=== PATIENT | female | born 1965 | race Caucasian/White ===

== ENCOUNTER 2017-01-19 15:50 | Inpatient (IN) | payer SELFPAY ==
[~2017-01-19] VITALS: Ht 185.4 cm; Wt 153.4 kg
[~2017-01-19 15:50] MED LIST: LORTA5 PO
[2017-01-19 15:57] VITALS: BP 175/91
[2017-01-19 16:37] VITALS: BP_SYST 146; BP_SYST 150; BP_SYST 173; BP_DIAS 68; BP_DIAS 69; BP_DIAS 84; RESP 15; RESP 23
--- NOTE | 2017-01-19 17:04 | RADRPT ---
EXAM DATE/TIME: 01/19/2017 16:14 [facility] COMPARISON: No previous studies available for comparison. INDICATIONS : Syncope. MEDICAL HISTORY : Deep venous thrombosis. SURGICAL HISTORY : None. ENCOUNTER: Initial ACUITY: 1 day PAIN SCORE: 0/10 LOCATION: Bilateral chest FINDINGS: Mild left base consolidation noted. Right lung reasonably clear. No perceptible effusion. No pneumoth orax. Heart size within normal limits. CONCLUSION: Mild left base atelectasis. Inder Medel MD on January 19, 2017 at 17:02 Board Certified Radiologist. This report was verified electronically.
[2017-01-19] MEDS ORDERED: HYPERTENSION (17:07)
[2017-01-19] MEDS ORDERED: ALLERGY MEDICATION (17:07)
[2017-01-19] MEDS ORDERED: ASPI-437 (17:07)
[2017-01-19] MEDS ORDERED: CHOLMIS5 (17:07)
[2017-01-19] MEDS ORDERED: SODIUM CHLOR 0.9% 1000 ML INJ 1,000 ML IV SCH (17:11)
[2017-01-19 17:18] LABS: AUTOMATED NEUTROPHIL # 7.1 TH/MM3 (1.8-7.7); BASOPHIL % 0.3 % (0.0-2.0); EOSINOPHIL # 0.2 TH/MM3 (0-0.4); EOSINOPHIL % 2.1 % (0.0-4.0); HEMATOCRIT 42.7 % (35.0-46.0); HEMO FLAGS DIFF FINAL; LYMPH % 17.7 % (9.0-44.0); LYMPHOCYTE # 1.7 TH/MM3 (1.0-4.8); NEUT % 72.9 % (16.0-70.0); PLATELET COUNT 216 TH/MM3 (150-450); RED BLOOD COUNT 4.69 MIL/MM3 (4.00-5.30); RED CELL DISTRIBUTION WIDTH 14.7 % (11.6-17.2); WHITE BLOOD COUNT 9.7 TH/MM3 (4.0-11.0)
[2017-01-19 17:31] LABS: APTT (PATIENT) 33.4 SEC (24.3-30.1); PROTHROMBIN TIME - PATIENT 10.9 SEC (9.8-11.6)
[2017-01-19 17:58] LABS: ALKALINE PHOSPHATASE 98 U/L (45-117); ALT (GPT) 25 U/L (10-53); ANION GAP 7 MEQ/L (5-15); AST (GOT) 25 U/L (15-37); BICARBONATE 25.3 MEQ/L (21.0-32.0); BLOOD UREA NITROGEN 6 MG/DL (7-18); CHLORIDE 111 MEQ/L (98-107); GLOMERULAR FILTRATION RATE 63 ML/MIN (>89); MAGNESIUM 2.1 MG/DL (1.5-2.5); SODIUM (NA) 143 MEQ/L (136-145); TOTAL BILIRUBIN ADULT 0.6 MG/DL (0.2-1.0)
[2017-01-19 17:59] LABS: CREATINE KINASE 90 U/L (26-192); POTASSIUM 3.9 MEQ/L (3.5-5.1)
[2017-01-19 18:03] LABS: BACTERIA, URINE MOD /hpf; BLOOD, URINE SMALL (NEG); COMMENT (UR) CULTURE INDICATED; CULTURE IF INDICATED CULTURE INDICATED; GLUCOSE,URINE NEG (NEG); KETONE, URINE NEG (NEG); MUCUS URINE FEW /lpf (OCC); NITRITE,URINE NEG (NEG); SQUAMOUS EPITHELIAL CELL URINE 5 /hpf (0-5); URINE COLOR YELLOW (YELLW/STRAW)
--- NOTE | 2017-01-19 18:18 | PD ---
HPI Chief Complaint: Syncope/Near-Syncope Time Seen by Provider: 16:11 Travel History International Travel<30 days: No Contact w/Intl Traveler<30days: No Traveled to known affect area: No History of Present Illness HPI 51-year-old female that presents to the ED for evaluation of syncopal episode at work today. Patient had an episode of syncope without LOC today will out of work. 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 Per patient she does not remember what happened. Per ambulance report she had 3 other episodes while on the ambulance. Patient at this time appears to be somewhat fatigued but arousable. She denies any drugs or substance abuse. She states that she was admitted 3 weeks ago at a different hospital for something similar and she was possibly diagnosed with a stroke but she is not quite sure. She somewhat of a poor historian. She does have lower leg swelling. Per patient she was seen at [facility]. She has allergy to codeine. She denies any pain. Unclear this any head injury. Per ambulance report on her way here the had her on a cardiac tech and noted that she was in SVT which converted on its own without any medication or intervention done. Patient only had 1 episode of this. No history of heart disease. No chest pain or shortness of breath. No blurry vision or double vision. PFSH Past Medical History Hx Anticoagulant Therapy: Yes (ASPIRIN) Blood Disorders: No Anxiety: Yes Cancer: No Cardiovascular Problems: Yes (HTN) Cerebrovascular Accident: Yes (PER PATIENT, SHE HAD A STROKE) Diabetes: No Diminished Hearing: No Deep Vein Thrombosis: Yes Endocrine: No Genitourinary: No Hepatitis: No Hiatal Hernia: No Hypertension: Yes Immune Disorder: No Musculoskeletal: No Neurologic: No Psychiatric: No Reproductive: No Respiratory: No Immunizations Current: Yes Thyroid Disease: No Tetanus Vaccination: < 5 Years Influenza Vaccination: No ?: Not Menopausal: No : 3 Para: 3 Past Surgical History Abdominal Surgery: No AICD: No Cardiac Surgery: No Cholecystectomy: Yes Endocrine Surgery: No Gynecologic Surgery: No Joint Replacement: No Pacemaker: No Thoracic Surgery: No Other Surgery: Yes (BILAT CARPAL TUNNEL SURG) Social History Alcohol Use: No Tobacco Use: No Substance Use: No Allergies-Medications (Allergen,Severity, Reaction): Coded Allergies: codeine (Unverified Allergy, Severe, 01/19/17) Reported Meds & Prescriptions Reported Meds & Active Scripts Active Reported [Hypertension] [Cholesterol] [Allergy Medication] Adult Low Dose Aspirin EC (Aspirin) 81 Mg Tablet.dr Review of Systems Except as stated in HPI: all other systems reviewed are Neg Physical Exam Narrative GENERAL: SKIN: Warm and dry. HEAD: Atraumatic. Normocephalic. EYES: Pupils equal and round. No scleral icterus. No injection or drainage. ENT: No nasal bleeding or discharge. Mucous membranes pink and moist. Tongue is midline. No uvula deviation. NECK: Trachea midline. No JVD. CARDIOVASCULAR: Regular rate and rhythm. No murmurs, S3, S4. RESPIRATORY: No accessory muscle use. Clear to auscultation. Breath sounds equal bilaterally. GASTROINTESTINAL: Abdomen soft, non-tender, nondistended. Hepatic and splenic margins not palpable. MUSCULOSKELETAL: Extremities without clubbing, cyanosis, or edema. No obvious deformities. Full range of motion of the upper and lower extremities bilaterally. 2+ pulses bilaterally. NEUROLOGICAL: Awake and alert. No obvious cranial nerve deficits. Motor grossly within normal limits. Five out of 5 muscle strength in the arms and legs. Normal speech. PSYCHIATRIC: Appropriate mood and affect; insight and judgment normal. Data Data Last Documented VS Vital Signs Date Time Temp Pulse Resp B/P (MAP) Pulse Ox O2 Delivery O2 Flow Rate FiO2 01/19/17 19:00 85 18 168/79 (108) 99 Nasal Cannula 2.00 Orders Orders Electrocardiogram (01/19/17 16:10) Complete Blood Count With Diff (01/19/17 16:10) Comprehensive Metabolic Panel (01/19/17 16:10) Ckmb (Isoenzyme) Profile (01/19/17 16:10) Troponin I (01/19/17 16:10) Prothrombin Time / Inr (Pt) (01/19/17 16:10) Act Partial Throm Time (Ptt) (01/19/17 16:10) Lipase (01/19/17 16:10) Urinalysis - C+S If Indicated (01/19/17 16:10) Magnesium (Mg) (01/19/17 16:10) Thyroid Stimulating Hormone (01/19/17 16:10) Chest, Single Ap (01/19/17 16:10) Ct Brain W/O Iv Contrast(Rout) (01/19/17 16:10) Ct Abd/Pel W Iv Contrast(Rout) (01/19/17 16:10) Iv Access Insert/Monitor (01/19/17 16:10) Ecg Monitoring (01/19/17 16:10) Oximetry (01/19/17 16:10) Ed Urine Pregnancytest Poc (01/19/17 16:10) Orthostatic Vital Signs (01/19/17 16:33) Sodium Chlor 0.9% 1000 Ml Inj (Ns 1000 M (01/19/17 17:11) Urine Culture (01/19/17 17:15) Iohexol 350 Inj (Omnipaque 350 Inj) (01/19/17 19:45) Admit Order (Ed Use Only) (01/19/17 20:45) Labs Laboratory Tests Test 01/19/17 16:32 01/19/17 17:15 White Blood Count 9.7 TH/MM3 Red Blood Count 4.69 MIL/MM3 Hemoglobin 14.1 GM/DL Hematocrit 42.7 % Mean Corpuscular Volume 91.0 FL Mean Corpuscular Hemoglobin 30.0 PG Mean Corpuscular Hemoglobin Concent 33.0 % Red Cell Distribution Width 14.7 % Platelet Count 216 TH/MM3 Mean Platelet Volume 8.6 FL Neutrophils (%) (Auto) 72.9 % Lymphocytes (%) (Auto) 17.7 % Monocytes (%) (Auto) 7.0 % Eosinophils (%) (Auto) 2.1 % Basophils (%) (Auto) 0.3 % Neutrophils # (Auto) 7.1 TH/MM3 Lymphocytes # (Auto) 1.7 TH/MM3 Monocytes # (Auto) 0.7 TH/MM3 Eosinophils # (Auto) 0.2 TH/MM3 Basophils # (Auto) 0.0 TH/MM3 CBC Comment DIFF FINAL Differential Comment Prothrombin Time 10.9 SEC Prothromb Time International Ratio 1.0 RATIO Activated Partial Thromboplast Time 33.4 SEC Blood Urea Nitrogen 6 MG/DL Creatinine 0.93 MG/DL Random Glucose 86 MG/DL Total Protein 7.3 GM/DL Albumin 3.3 GM/DL Calcium Level 8.5 MG/DL Magnesium Level 2.1 MG/DL Alkaline Phosphatase 98 U/L Aspartate Amino Transf (AST/SGOT) 25 U/L Alanine Aminotransferase (ALT/SGPT) 25 U/L Total Bilirubin 0.6 MG/DL Sodium Level 143 MEQ/L Potassium Level 3.9 MEQ/L Chloride Level 111 MEQ/L Carbon Dioxide Level 25.3 MEQ/L Anion Gap 7 MEQ/L Estimat Glomerular Filtration Rate 63 ML/MIN Total Creatine Kinase 90 U/L Troponin I LESS THAN 0.02 NG/ML Lipase 103 U/L Thyroid Stimulating Hormone 3rd Gen 2.510 uIU/ML Urine Color YELLOW Urine Turbidity HAZY Urine pH 6.0 Urine Specific [place] 1.022 Urine Protein TRACE mg/dL Urine Glucose (UA) NEG mg/dL Urine Ketones NEG mg/dL Urine Occult Blood SMALL Urine Nitrite NEG Urine Bilirubin NEG Urine Urobilinogen LESS THAN 2.0 MG/DL Urine Leukocyte Esterase MOD Urine RBC 6 /hpf Urine WBC 5 /hpf Urine Squamous Epithelial Cells 5 /hpf Urine Bacteria MOD /hpf Urine Mucus FEW /lpf Microscopic Urinalysis Comment CULTURE INDICATED MDM Medical Decision Making Medical Screen Exam Complete: Yes Emergency Medical Condition: Yes Medical Record Reviewed: Yes Interpretation(s) CBC & BMP Diagram 01/19/17 16:32 Total Protein 7.3, Albumin 3.3 L, Calcium Level 8.5, Magnesium Level 2.1, Alkaline Phosphatase 98, Aspartate Amino Transf (AST/SGOT) 25, Alanine Aminotransferase (ALT/SGPT) 25, Total Bilirubin 0.6 EKG shows sinus tachycardia but no sign of acute ischemia or arrythmia. Read by me and attending. Last Impressions Chest X-Ray 01/19/17 1610 Signed Impressions: Service Date/Time: Thursday, January 19, 2017 16:14 - CONCLUSION: Mild left base atelectasis. Inder Medel MD Ct of head shows possible subacute vs chronic stroke. CT of abdomen negative for acute disease troponin and CKMB negative Differential Diagnosis Syncope versus syncopal episode versus chest pain versus a typical chest pain versus arrhythmia versus CVA Narrative Course 51-year-old female that presents to the ED for evaluation of syncope. Patient was properly examined and was found to have signs and symptoms consistent with syncope. Patient had 3 episodes of the as well as in the ambulance witnessed by ambulance staff. Patient apparently had an arrhythmia in the ambulance and she has had no episodes here although she did have a small syncopal episode while was talking to the patient. She was arousable. History is limited because of the patient's poor medical knowledge. This time labs and imaging were ordered. Case discussed with my attending Dr Kemp who recommends the same. She does recommend admission. Labs and imaging here were essentially unremarkable other than for what appears to be old stroke. She does have a history of CVA about 3 weeks ago. Multiple attempts were made to get report from [facility] but were not able to obtain it. At this time condition is for admission for further evaluation of the syncopal episodes. She has been more Normal now. Residents were paged. Residents agree to admission. Patient agreed to this as well. Diagnosis Primary Impression: Syncopal episodes Qualified Codes: R55 - Syncope and collapse Admitting Information Admitting Physician Requests: Observation Jose Hutchison Jan 19, 2017 18:18
[2017-01-19 19:00] VITALS: BP 168/79; PULSE 85; RESP 18; O2SAT 99
[2017-01-19] MEDS ORDERED: IOHEXOL 350 MG/ML 10 ML VIAL (for RAD DIAG) IVCONTRAST ONE (19:45)
--- NOTE | 2017-01-19 20:30 | RADRPT ---
EXAM DATE/TIME: 01/19/2017 19:35 [facility] COMPARISON: No previous studies available for comparison. INDICATIONS : Syncope. RADIATION DOSE: 54.74 CTDIvol (mGy) MEDICAL HISTORY : Cerebrovascular disease. Hypertension. Deep venous thrombosis. SURGICAL HISTORY : None. ENCOUNTER: Initial ACUITY: 1 day PAIN SCALE: 0/10 LOCATION: cranial TECHNIQUE: Multiple contiguous axial images were obtained of the head. Using automated exposure control and adj ustment of the mA and/or kV according to patient size, radiation dose was kept as low as reasonably a chievable to obtain optimal diagnostic quality images. DICOM format image data is available electro nically for review and comparison. FINDINGS: There is some encephalomalacia in the left frontal lobe possibly from prior infarct or trauma. No acu te cranial mass, hemorrhage or shift. No hydrocephalus. No abnormal extra-axial fluid. CONCLUSION: Focal encephalomalacia left frontal lobe measuring up to 2.7 cm, possibly from subacute or old infarc t. No acute intracranial abnormality. Solo Ramirez MD on January 19, 2017 at 20:26 Board Certified Radiologist. This report was verified electronically.
--- NOTE | 2017-01-19 20:33 | RADRPT ---
EXAM DATE/TIME: 01/19/2017 19:41 [facility] COMPARISON: No previous studies available for comparison. INDICATIONS : Right lower quadrant pain. IV CONTRAST: 100 cc Omnipaque 350 (iohexol) IV ORAL CONTRAST: No oral contrast ingested. RADIATION DOSE: 16.95 CTDIvol (mGy) MEDICAL HISTORY : Hypertension. Deep venous thrombosis. Cerebrovascular disease. SURGICAL HISTORY : Cholecystectomy. ENCOUNTER: Initial ACUITY: 1 day PAIN SCALE: 5/10 LOCATION: Right lower quadrant TECHNIQUE: Volumetric scanning of the abdomen and pelvis was performed. Using automated exposure control and ad justment of the mA and/or kV according to patient size, radiation dose was kept as low as reasonably achievable to obtain optimal diagnostic quality images. DICOM format image data is available electro nically for review and comparison. FINDINGS: Lung bases demonstrate dependent atelectasis. Mild fatty liver. Spleen, adrenals, kidneys and pancrea s unremarkable. Cholecystectomy. No free fluid or free air. No bowel obstruction. Appendix appears normal. Degenerative disc disease a nd facet arthropathy in the spine. CONCLUSION: 1. No acute findings. Appendix normal. No obstructive uropathy. Cholecystectomy. Solo Ramirez MD on January 19, 2017 at 20:28 Board Certified Radiologist. This report was verified electronically.
--- NOTE | 2017-01-19 20:57 | HHI.HP ---
HPI Service Family Medicine Primary Care Physician Unknown Admission Diagnosis Syncopal episodes x 3 in 1 hour, arrhythmia, recent CVA Diagnoses: International Travel<30 Days: No Contact w/Intl Traveler<30days: No Known Affected Area: No History of Present Illness Patient is a 51 year old female who presents to the [facility] via EMS following a syncopal episode at work. Patient states that upon completion of shift, she was talking to some of her coworkers. Then she remembers waking up confused; she didn't know where she was and started crying. Patient states that she does not remember anything during or shortly after episode. She remembers feeling "funny" prior to the episode. She also reports blurry vision and feeling as if her head was about to explode. She insists that she was not having a headache. She denies dizziness, seeing black spots in her vision, and picking up unusual smells. The episode was witnessed by the patient's coworkers. As per , the episode lasted seconds. The patient sat upright in a daze before slumping over and losing consciousness. She was able to be aroused but remained in a daze. Coworkers denied any shaking, tongue biting during episode. Patient denies incontinence. Patient had, at least, three more episodes while in transit to hospital and one episode in ED. EMS also noted SVT , which converted without medical management. Orthostatic blood pressure in ED negative. Of note, patient was hospitalized at [facility] approximately 4 weeks ago. Patient reports not feeling well. She was found to have "plugged ears," which were cleaned. Patient felt worse after cleaning but was sent home. She reports an episode of fainting in her bathroom shortly after discharge. Patient returned to hospital where CT of head was performed. CT showed "an old, mini stroke." Patient was also found to have elevated blood pressure and cholesterol. Patient was hospitalized for total of 3-4 days. Patient was discharged with blood pressure and cholesterol medications. Patient was hospitalized again about 10 days ago. Patient reported feeling that her head was going to explode. When EMS arrived at home, patient felt better but insisted on EMS taking patient to the hospital. A CT of the head was performed with similar findings as previous CT. Patient's blood pressure was again found to be elevated. Patient was discharged from ED. Patient visited ED one more time for dark and bloody stool. Patient was told she was "fine" and discharged from ED. (Demetria Rice MD R1) Review of Systems Constitutional: COMPLAINS OF: Diaphoretic episodes, Fatigue, Dizziness, DENIES : Fever, Chills Eyes: COMPLAINS OF: Blurred vision, Photosensitivity, DENIES: Diplopia, Vision loss, Double Vision Ears, nose, mouth, throat: COMPLAINS OF: Nasal discharge (clear ), Running Nose , Sinus Pain (allergy), DENIES: Tinnitus, Hearing loss, Throat pain, Ear Pain Respiratory: COMPLAINS OF: Shortness of breath (Minimal ), DENIES: Cough, Wheezing Cardiovascular: COMPLAINS OF: Chest pain (last couple of weeks, not acute ), Palpitations (earlier today; while she was working ), Syncope Gastrointestinal: COMPLAINS OF: Abdominal pain, Diarrhea, DENIES: Black stools , Bloody stools, Constipation, Nausea, Vomiting Genitourinary: COMPLAINS OF: Nocturia, DENIES: Urinary frequency, Urinary incontinence, Urgency, Hematuria, Dysuria Musculoskeletal: COMPLAINS OF: Joint Swelling (right lower extremity swelling ) , DENIES: Joint pain, Muscle aches, Stiffness Integumentary: DENIES: Abnormal pigmentation, Rash Hematologic/lymphatic: COMPLAINS OF: Bruising Neurologic: COMPLAINS OF: Headache ("not a headache"; head feels like it's going to explode ), Seizures (no hx), DENIES: Localized weakness, Speech Problems Psychiatric: COMPLAINS OF: Anxiety, Confusion (Demetria Rice MD R1) Past Family Social History Past Medical History HTN CVA Anxiety DVT x2 (one in right, one in left lower extremity) Venous insufficiency Past Surgical History Cholecystectomy Carpal Tunnel - bilateral Reported Medications Awaiting call from with names and dosage of medication. (Demetria Rice MD R1) Allergies: Coded Allergies: codeine (Unverified Allergy, Severe, 01/19/17) Family History Father (, 60s) - diabetes, cancer - pancreatic Mother (70) - COPD, smoker Sister (30s) - Lupus Social History Alcohol: denies Tobacco: denies Substance use: denies (Demetria Rice MD R1) Physical Exam Vital Signs Vital Signs Date Time Temp Pulse Resp B/P (MAP) Pulse Ox O2 Delivery O2 Flow Rate FiO2 01/19/17 19:00 85 18 168/79 (108) 99 Nasal Cannula 2.00 01/19/17 16:37 102 23 150/69 (96) 109 15 146/68 (94) 120 23 173/84 (113) 01/19/17 16:10 104 100 Nasal Cannula 2.00 01/19/17 15:57 175/91 (119) Physical Exam GENERAL: This is a well-nourished, well-developed obese patient, in no apparent distress. SKIN: Cool and dry. Multiple burnham angioma on back. Darkened skin over proximal foot and distal lower extremity bilaterally. HEAD: Atraumatic. Normocephalic. No temporal or scalp tenderness. EYES: Pupils equal round and reactive. Extraocular motions intact. No scleral icterus. No injection or drainage. ENT: Nose without bleeding, purulent drainage or septal hematoma. Throat without erythema, tonsillar hypertrophy or exudate. Uvula midline. Airway patent. NECK: Trachea midline. No JVD or lymphadenopathy. Supple, nontender, no meningeal signs. CARDIOVASCULAR: Regular rate and rhythm without murmurs, gallops, or rubs. RESPIRATORY: Clear to auscultation. Breath sounds equal bilaterally. No wheezes , rales, or rhonchi. GASTROINTESTINAL: Abdomen soft, nondistended. Diffuse tenderness upon palpation , most severe in lower left quadrant. No hepato-splenomegaly, or palpable masses. Some guarding. MUSCULOSKELETAL: Edema noted in lower extremities, below knee, bilaterally. Extremities without clubbing, cyanosis. No joint tenderness, effusion, or edema noted. Calf tenderness noted bilaterally NEUROLOGICAL: Awake and alert. Cranial nerves II through XII intact. Motor grossly within normal limits. Five out of 5 muscle strength in all muscle groups. Normal speech. Laboratory Laboratory Tests Test 01/19/17 16:32 01/19/17 17:15 White Blood Count 9.7 Red Blood Count 4.69 Hemoglobin 14.1 Hematocrit 42.7 Mean Corpuscular Volume 91.0 Mean Corpuscular Hemoglobin 30.0 Mean Corpuscular Hemoglobin Concent 33.0 Red Cell Distribution Width 14.7 Platelet Count 216 Mean Platelet Volume 8.6 Neutrophils (%) (Auto) 72.9 Lymphocytes (%) (Auto) 17.7 Monocytes (%) (Auto) 7.0 Eosinophils (%) (Auto) 2.1 Basophils (%) (Auto) 0.3 Neutrophils # (Auto) 7.1 Lymphocytes # (Auto) 1.7 Monocytes # (Auto) 0.7 Eosinophils # (Auto) 0.2 Basophils # (Auto) 0.0 CBC Comment DIFF FINAL Differential Comment Prothrombin Time 10.9 Prothromb Time International Ratio 1.0 Activated Partial Thromboplast Time 33.4 Blood Urea Nitrogen 6 Creatinine 0.93 Random Glucose 86 Total Protein 7.3 Albumin 3.3 Calcium Level 8.5 Magnesium Level 2.1 Alkaline Phosphatase 98 Aspartate Amino Transf (AST/SGOT) 25 Alanine Aminotransferase (ALT/SGPT) 25 Total Bilirubin 0.6 Sodium Level 143 Potassium Level 3.9 Chloride Level 111 Carbon Dioxide Level 25.3 Anion Gap 7 Estimat Glomerular Filtration Rate 63 Total Creatine Kinase 90 Troponin I LESS THAN 0.02 Lipase 103 Thyroid Stimulating Hormone 3rd Gen 2.510 Urine Color YELLOW Urine Turbidity HAZY Urine pH 6.0 Urine Specific Platinum 1.022 Urine Protein TRACE Urine Glucose (UA) NEG Urine Ketones NEG Urine Occult Blood SMALL Urine Nitrite NEG Urine Bilirubin NEG Urine Urobilinogen LESS THAN 2.0 Urine Leukocyte Esterase MOD Urine RBC 6 Urine WBC 5 Urine Squamous Epithelial Cells 5 Urine Bacteria MOD Urine Mucus FEW Microscopic Urinalysis Comment CULTURE INDICATED Date/Time Source Procedure Growth Status 01/19/17 17:15 Urine Random Urine Urine Culture Pending Received (Demetria Rice MD R1) Result Diagram: 01/19/17 1632 01/19/17 1632 Imaging Last Impressions Head CT 01/19/171609 Signed Impressions: Service Date/Time: Thursday, January 19, 2017 19:35 - CONCLUSION: Focal encephalomalacia left frontal lobe measuring up to 2.7 cm, possibly from subacute or old infarct. No acute intracranial abnormality. Solo Ramirez MD Chest X-Ray 01/19/171609 Signed Impressions: Service Date/Time: Thursday, January 19, 2017 16:14 - CONCLUSION: Mild left base atelectasis. Inder Medel MD Abdomen/Pelvis CT 01/19/171609 Signed Impressions: Service Date/Time: Thursday, January 19, 2017 19:41 - CONCLUSION: 1. No acute findings. Appendix normal. No obstructive uropathy. Cholecystectomy. Solo Ramirez MD (Demetria Rice MD R1) Caprini VTE Risk Assessment Caprini VTE Risk Assessment: Mod/High Risk (score >= 2) Caprini Risk Assessment Model Point Value = 1 Point Value = 2 Point Value = 3 Point Value = 5 Age 41-60 Minor surgery BMI > 25 kg/m2 Swollen legs Varicose veins or History of unexplained or recurrent spontaneous Oral contraceptives or hormone replacement Sepsis (< 1 month) Serious lung disease, including pneumonia (< 1 month) Abnormal pulmonary function Acute myocardial infarction Congestive heart failure (< 1 month) History of inflammatory bowel disease Medical patient at bed rest Age 61-74 Arthroscopic surgery Major open surgery (> 45 min) Laparoscopic surgery (> 45 min) Malignancy Confined to bed (> 72 hours) Immobilizing plaster cast Central venous access Age >= 75 History of VTE Family history of VTE Factor V Leiden Prothrombin [id number] Lupus anticoagulant Anticardiolipin antibodies Elevated serum homocysteine Heparin-induced thrombocytopenia Other congenital or acquired thrombophilia Stroke (< 1 month) Elective arthroplasty Hip, pelvis, or leg fracture Acute spinal cord injury (< 1 month) Prophylaxis Regimen Total Risk Factor Score Risk Level Prophylaxis Regimen 0-1 Low Early ambulation 2 Moderate Order ONE of the following: *Sequential Compression Device (SCD) *Heparin 5000 units SQ BID 3-4 Higher Order ONE of the following medications: *Heparin 5000 units SQ TID *Enoxaparin/Lovenox 40 mg SQ daily (WT < 150 kg, CrCl > 30 mL/min) *Enoxaparin/Lovenox 30 mg SQ daily (WT < 150 kg, CrCl > 10-29 mL/min) *Enoxaparin/Lovenox 30 mg SQ BID (WT < 150 kg, CrCl > 30 mL/min) AND/OR *Sequential Compression Device (SCD) 5 or more Highest Order ONE of the following medications: *Heparin 5000 units SQ TID (Preferred with Epidurals) *Enoxaparin/Lovenox 40 mg SQ daily (WT < 150 kg, CrCl > 30 mL/min) *Enoxaparin/Lovenox 30 mg SQ daily (WT < 150 kg, CrCl > 10-29 mL/min) *Enoxaparin/Lovenox 30 mg SQ BID (WT < 150 kg, CrCl > 30 mL/min) AND *Sequential Compression Device (SCD) (Demetria Rice MD R1) Assessment and Plan Assessment and Plan Patient is a 51 year old female who presents to the [facility] ED via EMS following a syncopal episode at work. While in transit, patient experienced, at least, 3 additional syncopal episodes. Patient experienced one more syncopal episode while in ED. Episodes were preceded by blurry vision and patient feeling her head was going to explode. Patient admitted for observation and workup of syncopal episodes. Code Status Full code. Discussed Condition With Dr. Rm (Demetria Rice MD R1) Attending Attestation The patient has been seen and examined. The chart and all resident notes have been reviewed. I agree that inpatient care is appropriate and that a two midnight stay is expected for the reasons documented in the resident history and physical. I have discussed this with the resident and certify the resident s order for inpatient admission. (Rhina Shepherd MD) Problem List: (1) Syncopal episodes ICD Codes: R55 - Syncope and collapse Status: Acute Plan: Differential Diagnosis: * Cardiac arrhythmia versus seizure versus vago-vasal episode Cardiac workup: * EKG with evidence of sinus tachycardia, possible right ventricular conduction delay. * Continuous cardiac monitoring/telemetry. * Consider serial cardiac enzymes and EKGs if patient complains of chest pain. Seizure workup: * Consult neurology. * Neuro checks. * EEG - she refused; states that she had EEG done during recent hospitalization ; we will try to obtain records in the morning. Vago-vasal workup: * Orthostatic blood pressure negative in ED. (2) SVT (supraventricular tachycardia) ICD Codes: I47.1 - Supraventricular tachycardia Status: Acute Plan: One episode of SVT noted in transit to hospital. See Syncopal episodes- cardiac workup. (3) DVT (deep venous thrombosis) ICD Codes: I82.409 - Acute embolism and thrombosis of unspecified deep veins of unspecified lower extremity Status: Acute Plan: Patient with history of bilateral DVTs. Calf tenderness upon palpation bilaterally. * Ultrasound of lower extremities bilateral - normal examination. * DVT prophylaxis - Lovenox 40 mg q24hr SQ. (4) Constipation ICD Codes: K59.00 - Constipation, unspecified Plan: Patient complaining of left lower quadrant pain. CT abdomen with no acute findings. * Stool softeners ordered PRN. (5) HTN (hypertension) ICD Codes: I10 - Essential (primary) hypertension Status: Chronic Plan: Patient took blood pressure medication today. Will start home medication in a.m. once name and dosage has been confirmed with . (6) UTI (urinary tract infection) ICD Codes: N39.0 - Urinary tract infection, site not specified Status: Acute Plan: Asymptomatic. UA with evidence of small occult blood, moderate leukocyte esterase, 6 red blood cells, moderate bacteria. Culture indicated. * Follow up on culture. (7) Fluid, electrolyte, nutrition and prophylaxis Status: Acute Plan: Fluid * Tolerating PO. Electrolytes * Monitor and replete as necessary. Nutrition * Heart healthy diet. Prophylaxis * Lovenox 40mg q24hr SQ (Demetria Rice MD R1) Problem Qualifiers (1) Syncopal episodes: Qualified Codes: R55 - Syncope and collapse (2) DVT (deep venous thrombosis): Demetria Rice MD R1 Jan 19, 2017 20:57 Rhina Shepherd MD Jan 20, 2017 18:35
[2017-01-19] MEDS: SODIUM CHLORIDE 0.9% FLUSH 10 ML FLUSH IV FLUSH SCH (21:00)
[2017-01-19] MEDS ORDERED: cefTRIAXone INJ 1,000 MG in SODIUM CHLORIDE 0.9% INJ 100 ML IV ONE (21:00)
[2017-01-19] MEDS ORDERED: SODIUM CHLORIDE 0.9% FLUSH 10 ML FLUSH IV FLUSH PRN (21:00)
[2017-01-19] MEDS ORDERED: LACTULOSE SYRUP 20 GM/30 ML CUP PO PRN (22:00)
[2017-01-19] MEDS: DOCUSATE SODIUM 50 MG/SENNA 8.6 MG TAB PO SCH (22:00)
[2017-01-19] MEDS ORDERED: MORPHINE SULFATE 4 MG/ML INJ IV PRN (22:00)
[2017-01-19] MEDS ORDERED: ONDANSETRON HCL 4 MG/2 ML VIAL IVP PRN (22:00)
[2017-01-19] MEDS ORDERED: ACETAMINOPHEN/HYDROcodone 325 MG/5 MG TAB PO PRN (22:00)
[2017-01-19] MEDS ORDERED: SENNOSIDES 8.6 MG TAB PO PRN (22:00)
[2017-01-19] MEDS ORDERED: NALOXONE HCL 0.4 MG/ML AMP IV PRN ×2 (22:00)
[2017-01-19] MEDS ORDERED: ACETAMINOPHEN 325 MG TAB PO PRN (22:00)
[2017-01-19] MEDS ORDERED: MAGNESIUM HYDROXIDE SUSP 30 ML CUP PO PRN (22:00)
[2017-01-19] MEDS ORDERED: ENOXAPARIN SODIUM 40 MG/0.4 ML SYRINGE SQ SCH (22:00)
[2017-01-19] MEDS ORDERED: BISACODYL 10 MG SUPP RECTAL PRN (22:00)
[2017-01-19 22:26] VITALS: BP 151/80; PULSE 81; RESP 18; O2SAT 98
--- NOTE | 2017-01-19 22:43 | RADRPT ---
EXAM DATE/TIME: 01/19/2017 21:58 [facility] COMPARISON: No previous studies available for comparison. INDICATIONS : Bilateral leg pain. MEDICAL HISTORY : Cerebrovascular accident. Seizures. Hypertension. Deep vein thrombosis. Anxiety. SURGICAL HISTORY : Cholecystectomy. Carpal tunnel. ENCOUNTER: Initial ACUITY: 1 week PAIN SCORE: 6/10 LOCATION: Bilateral legs. TECHNIQUE: Venous ultrasound of the left and right leg was performed from the inguinal ligament to the proximal calf. Real-time, color Doppler and spectral tracing, compression and augmentation techniques were us ed. FINDINGS: RIGHT LEG: There is normal compressibility of the deep venous system from the inguinal region to the proximal ca lf. No echogenic clot is seen in the lumen of the common femoral, femoral, popliteal, and posterior tibial veins. There is a normal response of the venous system to proximal and distal augmentation an d respiration. LEFT LEG: There is normal compressibility of the deep venous system from the inguinal region to the proximal ca lf. No echogenic clot is seen in the lumen of the common femoral, femoral, popliteal, and posterior tibial veins. There is a normal response of the venous system to proximal and distal augmentation an d respiration. CONCLUSION: Normal examination. Solo Ramirez MD on January 19, 2017 at 22:42 Board Certified Radiologist. This report was verified electronically.
[2017-01-19 23:13] VITALS: BP 138/65; PULSE 76; RESP 18; TEMP 97.8; O2SAT 98
[2017-01-19] MEDS ORDERED: ASPIRIN 325 MG TAB PO SCH (23:30)
[2017-01-20] VITALS (13 sets, daily range): BP systolic 113–141; BP diastolic 61–82; PULSE 66–84; RESP 16–19; TEMP 97.5–98.5; O2SAT 96–99
[2017-01-20] MEDS ORDERED: ATOR40TA16 PO (00:24)
[2017-01-20] MEDS ORDERED: MONT10TA4 PO (00:24)
[2017-01-20 01:12] LABS: CREATINE KINASE 46 U/L (26-192)
[2017-01-20 07:45] LABS: CREATINE KINASE 43 U/L (26-192)
[2017-01-20] MEDS ORDERED: ENOXAPARIN SODIUM 150 MG/ML SYRINGE SQ SCH (10:30)
[2017-01-20] MEDS: SODIUM CHLORIDE 0.9% FLUSH 10 ML FLUSH IV FLUSH SCH ×2 (11:34→21:42)
[2017-01-20] MEDS: ASPIRIN 81 MG CHEW TAB CHEW SCH (11:34)
[2017-01-20] MEDS: DOCUSATE SODIUM 50 MG/SENNA 8.6 MG TAB PO SCH ×2 (11:34→21:41)
--- NOTE | 2017-01-20 11:39 | RADRPT ---
EXAM DATE/TIME: 01/20/2017 10:33 [facility] COMPARISON: No previous studies available for comparison. INDICATIONS : Syncope. MEDICAL HISTORY : Cerebrovascular accident. Seizures. Hypertension. Deep vein thrombosis. Anxiety. SURGICAL HISTORY : Cholecystectomy. Carpal tunnel. ENCOUNTER: Initial ACUITY: 1 day PAIN SCORE: 0/10 LOCATION: Bilateral neck PEAK SYSTOLIC VELOCITIES (cm/sec): ICA/CCA RATIO: Right: 1.7 Left: 0.7 ICA: Right: 115 Left: 72 CCA: Right: 69 Left: 110 ECA: Right: 99 Left: 109 VERTEBRAL: Right: 47 antegrade Left: 47 antegrade Elevated flow velocities and ICA/CCA ratios have been found to correlate with increased degrees of vessel stenosis, calculated as percentage of diameter relative to a normal segment of distal ICA/CCA FINDINGS: RIGHT CAROTID: No significant stenosis is visualized. The waveforms are within normal limits. LEFT CAROTID: No significant stenosis is visualized. The waveforms are within normal limits. VERTEBRAL ARTERIES: Antegrade flow is seen in both vertebral arteries. MISCELLANEOUS: None. CONCLUSION: No evidence of flow-limiting carotid stenosis. Inder Ambrocio MD on January 20, 2017 at 11:36 Board Certified Radiologist. This report was verified electronically.
[2017-01-20] MEDS: LISINOPRIL 10 MG TAB PO SCH (13:50)
--- NOTE | 2017-01-20 14:35 | EKG ---
Date Performed: 01/19/2017 Time Performed: 15:58:58 PTAGE: 51 years EKG: SINUS TACHYCARDIA POSSIBLE RIGHT VENTRICULAR CONDUCTION DELAY ABNORMAL RHYTHM ECG Compared to prior tracing no significant change PREVIOUS TRACING : 09/06/2015 10.28 DOCTOR: Carlyle Meyer Interpretating Date/Time 01/20/2017 14:32:21
--- NOTE | 2017-01-20 14:35 | EKG ---
Date Performed: 01/20/2017 Time Performed: 05:57:02 PTAGE: 51 years EKG: Sinus rhythm INCOMPLETE RIGHT BUNDLE BRANCH BLOCK BORDERLINE ECG Compared to prior tracing no significant change PREVIOUS TRACING : 01/20/2017 00.09 DOCTOR: Carlyle Meyer Interpretating Date/Time 01/20/2017 14:32:07
--- NOTE | 2017-01-20 15:02 | EKG ---
Date Performed: 01/20/2017 Time Performed: 00:09:53 PTAGE: 51 years EKG: Sinus rhythm INCOMPLETE RIGHT BUNDLE BRANCH BLOCK BORDERLINE ECG PREVIOUS TRACING : 01/19/2017 15.58 DOCTOR: Carlyle Meyer Interpretating Date/Time 01/20/2017 15:01:07
[2017-01-20] MEDS: ACETAMINOPHEN/HYDROcodone 325 MG/10 MG TAB PO PRN (16:05)
[2017-01-20] MEDS: RIVAROXABAN 20 MG TAB PO SCH (16:05)
[2017-01-20] MEDS ORDERED: LORazepam 2 MG/ML VIAL IV PUSH PRN (16:15)
[2017-01-20 17:32] LABS: BETA HCG QUANT LESS THAN 1 MIU/ML (0-5)
[2017-01-20 18:11] LABS: CREATINE KINASE 45 U/L (26-192)
--- NOTE | 2017-01-20 18:29 | MB ---
cc: KIM SILVA M.D. DATE OF CONSULTATION 01/20/2017 REASON FOR CONSULTATION Loss of conscious, possible seizure. HISTORY OF PRESENT ILLNESS Ms. Thomas is a 51-year-old woman who while at work yesterday had an episode of loss of consciousness. She states she felt "funny" prior to the episode but cannot be any more specific. Denied headache, chest pain or palpitations. She apparently had lost consciousness for an unknown period of time. When she awoke she was mildly confused was "in-and-out of it." She was witnessed by coworkers, apparently there was no tonic-clonic activity. No shaking activity. No tongue biting, no bladder incontinence. She had an episode about 4 weeks ago of loss of consciousness after micturating, had a with negative workup at [facility] including CT brain, although the CT may have shown "an old stroke." She has no prior history of seizures. PAST MEDICAL HISTORY 1. History of anxiety. 2. Hypertension. 3. Stroke according to a CT scan but no known clinic history of stroke. 4. Cholecystectomy. 5. Carpal tunnel surgery. 6. Venous insufficiency. 7. History of bilateral DVTs. ALLERGIES CODEINE. MEDICATIONS Current medications are: 1. Lipitor 40 mg daily. 2. Xarelto 20 mg daily. 3. Prinivil 10 mg daily. 4. Aspirin 81 mg daily. 5. Tylenol p.r.n. IMAGING CT scan of the brain encephalomalacia left frontal area measuring 2.7 cm, possibly an old acute to subacute stroke. Carotid ultrasound negative for any significant stenosis. Abdominal pelvic CT scan no acute change present. Lower extremity ultrasound no DVT seen. LABORATORY DATA White count 9700, hemoglobin 14.1, hematocrit 42%, platelet count 216,000. PT 10.9, INR 1.0, APTT 33.4. Sodium is 143, potassium 3.9, chloride 111, BUN is 6, creatinine 0.93. AST 25, ALT is 25. TSH 2.51. IMPRESSION Episode of loss of consciousness. By the history there may have been somewhat of a postictal state. The CT of the brain does reveal an area of encephalomalacia in the left frontal area. I cannot entirely rule out seizure, since this was her second episode would recommend prophylactic anticonvulsant therapy Keppra 500 mg b.i.d. We will obtain an MRI of the brain, also EEG. Also recommend cardiac evaluation to rule out cardiogenic syncope. MD TYLER Mendez/ELISEO /4:12 PM /6:09 PM
--- NOTE | 2017-01-20 18:34 | HHI.FPPN ---
Subjective Subjective patient seen and examined with the resident team case reviewed and discussed please refer to resident h&p for further details regarding hpi, ros, pmh, surghx , fh and sochx in summary, patient is a 51yoF presenting after multiple reported syncopal episodes she has recently been admitted to [facility] and discharged home but continues to have episodes of syncope she also reports a history of dvt x 2 and cva overnight, reports no events [facility] Objective Objective Last Impressions Carotid Artery Ultrasound 01/20/17 0000 Signed Impressions: Service Date/Time: Friday, January 20, 2017 10:33 - CONCLUSION: No evidence of flow-limiting carotid stenosis. Inder Ambrocio MD Head CT 01/19/17 1610 Signed Impressions: Service Date/Time: Thursday, January 19, 2017 19:35 - CONCLUSION: Focal encephalomalacia left frontal lobe measuring up to 2.7 cm, possibly from subacute or old infarct. No acute intracranial abnormality. Solo Ramirez MD Chest X-Ray 01/19/17 1610 Signed Impressions: Service Date/Time: Thursday, January 19, 2017 16:14 - CONCLUSION: Mild left base atelectasis. Inder Medel MD Abdomen/Pelvis CT 01/19/17 1610 Signed Impressions: Service Date/Time: Thursday, January 19, 2017 19:41 - CONCLUSION: 1. No acute findings. Appendix normal. No obstructive uropathy. Cholecystectomy. Solo Ramirez MD Lower Extremity Ultrasound 01/19/17 0000 Signed Impressions: Service Date/Time: Thursday, January 19, 2017 21:58 - CONCLUSION: Normal examination. Solo Ramirez MD Laboratory Tests - Abnormals Test 01/20/17 00:19 01/20/17 06:18 01/20/17 16:30 Troponin I LESS THAN 0.02 NG/ML LESS THAN 0.02 NG/ML LESS THAN 0.02 NG/ML Vital Signs 01/19/17 01/19/17 01/19/17 01/19/17 19:00 22:26 22:45 23:13 Temp 97.8 Pulse 85 81 76 Resp 18 18 18 B/P (MAP) 168/79 (108) 151/80 (103) 138/65 (89) Pulse Ox 99 98 98 O2 Delivery Nasal Cannula Nasal Cannula O2 Flow Rate 2.00 2.00 01/20/17 01/20/17 01/20/17 01/20/17 00:21 02:37 03:31 04:09 Temp 97.9 Pulse 70 74 66 Resp 19 B/P (MAP) 141/73 (95) Pulse Ox 97 FiO2 21 01/20/17 01/20/17 01/20/17 01/20/17 05:08 07:02 07:32 07:46 Temp 98.5 97.5 Pulse 75 68 72 Resp 18 16 B/P (MAP) 140/71 (94) 130/72 (91) Pulse Ox 97 98 99 O2 Delivery Nasal Cannula O2 Flow Rate 2.00 01/20/17 01/20/17 01/20/17 13:29 15:05 16:10 Temp 98.1 97.9 Pulse 73 70 76 Resp 16 16 B/P (MAP) 138/82 (100) 140/77 (98) Pulse Ox 98 98 Physical exam GENERAL: wdwn female, anxious appearing, sitting in bed SKIN: Warm and dry.no rashes HEAD: Normocephalic.AT EYES: No scleral icterus. No injection or drainage. NECK: Supple, trachea midline. No JVD or lymphadenopathy. CARDIOVASCULAR: Regular rate and rhythm without murmurs, gallops, or rubs. RESPIRATORY: Breath sounds equal bilaterally. No accessory muscle use. GASTROINTESTINAL: Abdomen soft, non-tender, nondistended. Hypoactive bs MUSCULOSKELETAL: No cyanosis, or edema. no calf tenderness, chronic venous stasis changes BACK: Nontender without obvious deformity. No CVA tenderness. NEURO: awake and alert, CN grossly intact, sensation and motor intact and equal bilaterally Assessment Assessment 51yoF with: Syncope vs seizure hx DVT x 2 Hx Cva htn hl PLAN PLAN telemetry seizure precautions eeg 2d echo neurology consultation monitor electrolytes serial ekg, CE consider cardiology consultation anticoagulation carotid u/s patient seen and examined. case reviewed and discussed agree with plan of care as discussed with me and documented in the resident note Rhina Shepherd MD Jan 20, 2017 18:34
--- NOTE | 2017-01-20 21:11 | RADRPT ---
EXAM DATE/TIME: 01/20/2017 20:09 [facility] COMPARISON: No previous studies available for comparison. INDICATIONS : CVA. MEDICAL HISTORY : Cerebrovascular accident. Seizures. Hypertension. Deep vein thrombosis, Anxiety SURGICAL HISTORY : Cholecystectomy. Carpal Tunnel ENCOUNTER: Subsequent ACUITY: 2 day PAIN SCORE: 0/10 LOCATION: Bilateral cranial TECHNIQUE: Multiplanar, multisequence MRI of the brain was performed without contrast. FINDINGS: MRI brain reveals mild focal encephalomalacia left frontal lobe similar to recent CT. No recent infar ct identified on diffusion weighted images. No mass effect or midline shift. No hydrocephalus. No abn ormal extra-axial fluid collections. Pituitary normal in size. CONCLUSION: Focal encephalomalacia left frontal lobe similar to recent CT. No acute findings. No recent infarct. Solo Ramirez MD on January 20, 2017 at 21:07 Board Certified Radiologist. This report was verified electronically.
--- NOTE | 2017-01-20 21:17 | MG ---
cc: ROBIN ESQUEDA MD Lab No: [id number] Date: 01/20/17 Age: 51 Sex: F Race: DATE OF 1965 A history of syncopal episode, left frontal encephalomalacia. Low amplitude posterior rhythm, 5-20 microvolts. Frontal high-frequency myogenic artifact noted. Background slowing suggest a drowsy state. Single lead EKG showing sinus rhythm with some possible premature contractions. No photic. No hyperventilation during the study. INTERPRETATION slow alpha variant, low amplitude and drowsy EEG. No epileptic activity noted. Clinical correlation. Robin Esqueda MD MG/EO /8:02 PM /9:08 PM MTDD
[2017-01-20] MEDS: levETIRAcetam 500 MG TAB PO SCH (21:41)
[2017-01-20] MEDS: ACETAMINOPHEN 325 MG TAB PO PRN (21:41)
[2017-01-20] MEDS: ATORVASTATIN 40 MG TAB PO SCH (21:42)
--- NOTE | 2017-01-20 22:31 | MB ---
cc: HORACIO JOHNSTON DATE OF CONSULTATION 01/20/2017 DATE OF 1965 REASON FOR CONSULTATION Syncope. HISTORY OF PRESENT ILLNESS 51-year-old female with past medical history significant for hypertension, CVA, anxiety, DVT x2, venous insufficiency, morbid obesity that presented to the hospital via EMS following a syncopal episode at work. The patient has no recollection of events however, per chart upon completion of her shift she was talking to some coworkers when all of the sudden she was confused and loss consciousness. She denies any palpitations, chest pain or shortness of breath or prodromal symptoms. According to the episode lasted several seconds. Cardiology has been consulted for further management and evaluation. The patient has been also seen by neurologist who has ordered an MRI that is still pending. property assessment monitor shows sinus rhythm. No signs of tachy-loraine arrhythmia. Cardiac markers have been unremarkable. REVIEW OF SYSTEMS Negative except for what is mentioned in HPI. PAST MEDICAL HISTORY 1. Hypertension. 2. Cerebrovascular accident. 3. Anxiety. 4. Deep venous thrombosis. 5. Venous insufficiency. PAST SURGICAL HISTORY 1. Cholecystectomy. 2. Carpal tunnel bilateral. ALLERGIES CODEINE. FAMILY HISTORY Father had diabetes and pancreatic cancer. Mother COPD, smoker. Sister has a history of lupus. SOCIAL HISTORY She denies alcohol use, tobacco abuse or illicit drug use. PHYSICAL EXAMINATION VITAL SIGNS: Temperature 97.5, respiratory rate 16, heart rate 76, blood pressure 140/77, O2 sat 90% on room air. GENERAL: She is awake, alert, oriented x3 in no acute distress. NECK: No JVD. No carotid bruits. CARDIOVASCULAR: Heart regular rate and rhythm. No murmurs, rubs or gallops. LUNGS: Clear to auscultation bilaterally. ABDOMEN: Obese. Positive bowel sounds, soft, nontender, nondistended. EXTREMITIES: No cyanosis or edema. Pulses throughout. LABORATORY DATA CBC, hemoglobin 14, hematocrit of 42, platelet count 216. INR 1.0. Chemistries, sodium 143, potassium 3.9, BUN 6, creatinine 0.93. Troponin less than 0.02 x3. TSH 2.5. INR 1.0. IMAGING STUDIES Carotid ultrasound unremarkable. CT scan of the abdomen and pelvis unremarkable. Chest x-ray mild left base atelectasis. Head CT scan focal encephalomalacia left frontal lobe measuring 2.7 cm concerning for a subacute or old infarct. Lower extremity ultrasound normal examination. EKG normal sinus rhythm. No acute ST changes. ASSESSMENT/PLAN 51-year-old female with cardiac risk factors that include hypertension, obesity , age that presents to the hospital after an episode of syncope. The patient had a similar episode 2 weeks ago. She has been evaluated by neurology who recommended to do an MRI. Differential diagnosis includes neurogenic versus cardiogenic syncope. At this point I would recommend to pursue a Lexiscan stress test to further risk stratify for coronary artery disease. If ischemic work up unremarkable as well as the neurological workup will consult Dr. Greenberg for EPS study. RECOMMENDATIONS 1. Continue monitoring tech. 2. Lexiscan stress test. 3. 2-D echocardiogram. 4. Followup neurological recommendations. Thank you for the opportunity to participate in the care of this patient. Further management to be determined. MD FRANSISCO Daly/ELISEO /6:03 PM /10:11 PM THERON
[2017-01-21] VITALS (10 sets, daily range): BP systolic 115–140; BP diastolic 65–80; PULSE 70–85; RESP 16–19; TEMP 97.3–98.1; O2SAT 96–99
[2017-01-21] MEDS ORDERED: ASPIRIN 325 MG TAB PO SCH (09:00)
[2017-01-21] MEDS: SODIUM CHLORIDE 0.9% FLUSH 10 ML FLUSH IV FLUSH SCH ×2 (09:07→21:15)
[2017-01-21] MEDS: LISINOPRIL 10 MG TAB PO SCH (09:07)
[2017-01-21] MEDS: DOCUSATE SODIUM 50 MG/SENNA 8.6 MG TAB PO SCH ×2 (09:08→21:14)
[2017-01-21] MEDS: ASPIRIN 81 MG CHEW TAB CHEW SCH (09:08)
[2017-01-21] MEDS: levETIRAcetam 500 MG TAB PO SCH ×2 (09:08→21:14)
[2017-01-21] MEDS: RIVAROXABAN 20 MG TAB PO SCH (09:08)
--- NOTE | 2017-01-21 10:29 | HHI.FPPN ---
Subjective Remarks Ms. Thomas had no acute events overnight; however she states that she had the worst headache of her life following MRI yesterday. She anxiously relates the events surrounding the MRI yesterday which was terrifying to her. Patient was told MRI results were negative for new pathology and that EEG results were pending. Patient states she had dry heaves after MRI yesterday. Patient feels constipated and stool softener supplement ordered to help patient achieved BM. underwriting technician arrived to perform echo during interview. Denies chest pain, shortness of breath, leg pain. (Ulises Matthew MD R1) Objective Vitals Vital Signs Date Time Temp Pulse Resp B/P (MAP) Pulse Ox O2 Delivery O2 Flow Rate FiO2 01/21/17 08:20 96 Nasal Cannula 3.00 01/21/17 08:15 97.5 70 16 132/71 (91) 99 01/21/17 03:31 97.9 82 19 115/69 (84) 98 01/21/17 00:11 97.8 85 17 120/65 (83) 96 01/21/17 00:00 78 01/20/17 21:28 97 Nasal Cannula 2.00 01/20/17 21:25 84 01/20/17 19:28 98.0 83 18 113/61 (78) 96 01/20/17 16:10 97.9 76 16 140/77 (98) 98 01/20/17 15:05 70 01/20/17 13:29 98.1 73 16 138/82 (100) 98 I/O 01/20/17 01/20/17 01/20/17 01/21/17 01/21/17 01/21/17 06:59 14:59 22:59 06:59 14:59 22:59 Intake Total 340 ml 230 ml Balance 340 ml 230 ml Intake Oral 240 ml 230 ml IV Total 100 ml # Voids 1 (Ulises Matthew MD R1) Result Diagram: 01/19/17 1632 01/19/17 1632 Imaging Last Impressions Carotid Artery Ultrasound 01/20/17 0000 Signed Impressions: Service Date/Time: Friday, January 20, 2017 10:33 - CONCLUSION: No evidence of flow-limiting carotid stenosis. Inder Ambrocio MD Brain MRI 01/20/17 0000 Signed Impressions: Service Date/Time: Friday, January 20, 2017 20:09 - CONCLUSION: Focal encephalomalacia left frontal lobe similar to recent CT. No acute findings. No recent infarct. Solo Ramirez MD Head CT 01/19/170 Signed Impressions: Service Date/Time: Thursday, January 19, 2017 19:35 - CONCLUSION: Focal encephalomalacia left frontal lobe measuring up to 2.7 cm, possibly from subacute or old infarct. No acute intracranial abnormality. Solo Ramirez MD Chest X-Ray 01/19/171609 Signed Impressions: Service Date/Time: Thursday, January 19, 2017 16:14 - CONCLUSION: Mild left base atelectasis. Inder Medel MD Abdomen/Pelvis CT 01/19/171609 Signed Impressions: Service Date/Time: Thursday, January 19, 2017 19:41 - CONCLUSION: 1. No acute findings. Appendix normal. No obstructive uropathy. Cholecystectomy. Solo Ramirez MD Lower Extremity Ultrasound 01/19/17 0000 Signed Impressions: Service Date/Time: Thursday, January 19, 2017 21:58 - CONCLUSION: Normal examination. Solo Ramirez MD Objective Remarks GENERAL: Well-nourished, well-developed obese patient with anxiety and tearfulness lying in bed, diaphoretic. SKIN: Warm and dry with ecchymoses on bilateral LEs below the knees and above the ankles; hypertrophic nails on bilateral feet. HEAD: Normocephalic. Atraumatic. EYES: No scleral icterus. No injection or drainage. EOMI. NECK: Supple, trachea midline. No lymphadenopathy. No meningeal signs. CARDIOVASCULAR: Regular rate and rhythm without murmurs, gallops, or rubs. RESPIRATORY: Breath sounds equal bilaterally. No accessory muscle use. No increased WOB. GASTROINTESTINAL: Abdomen soft, pt described tenderness to palpation of LUQ and LLQ, but no wincing, no rebound or guarding, nondistended. Hypoactive BS. EXTREMITIES: No cyanosis, or edema. Bilateral LE lesions as above. NEUROLOGICAL: Awake, alert, and oriented x 3. Non-focal. Medications and IVs Current Medications Medications (Trade) Dose Ordered Sig/Alexx Route Start Time Stop Time Status Last Admin (NS Flush) 2 ml UNSCH PRN IV FLUSH 01/19/17 21:00 (NS Flush) 2 ml BID IV FLUSH 01/19/17 21:00 01/21/17 09:07 (Tylenol) 650 mg Q4H PRN PO 01/19/17 22:00 01/20/17 21:41 (Zofran Inj) 4 mg Q6H PRN IVP 01/19/17 22:00 (Narcan Inj) 0.4 mg UNSCH PRN IV 01/19/17 22:00 (Jennifer-Colace) 1 tab BID PO 01/19/17 22:00 01/21/17 09:08 (Milk Of Magnesia Liq) 30 ml Q12H PRN PO 01/19/17 22:00 (Senokot) 17.2 mg Q12H PRN PO 01/19/17 22:00 (Dulcolax Supp) 10 mg DAILY PRN RECTAL 01/19/17 22:00 (Lactulose Liq) 30 ml DAILY PRN PO 01/19/17 22:00 (Tylenol) 650 mg Q6H PRN PO 01/19/17 22:00 ([place] 5-325 Mg) 1 tab Q4H PRN PO 01/19/17 22:00 ([place] 10-325 Mg) 1 tab Q4H PRN PO 01/19/17 22:00 01/20/17 16:05 (Morphine Inj) 4 mg Q3H PRN IV 01/19/17 22:00 (Narcan Inj) 0.4 mg UNSCH PRN IV 01/19/17 22:00 (Lipitor) 40 mg HS PO 01/20/17 21:00 01/20/17 21:42 (Aspirin Chew) 81 mg DAILY CHEW 01/20/17 10:30 01/21/17 09:08 (Prinivil) 10 mg DAILY PO 01/20/17 13:00 01/21/17 09:07 (Xarelto) 20 mg DAILY PO 01/20/17 14:15 01/21/17 09:08 (Keppra) 500 mg Q12HR PO 01/20/17 21:00 01/21/17 09:08 (Ativan Inj) 1 mg Q4H PRN IV PUSH 01/20/17 16:15 01/20/17 17:21 (Ulises Matthew MD R1) Urinary Catheter: No (Ulises Matthew MD R1) A/P Assessment and Plan Patient is a 51 year old female who presents to [facility] via EMS following a syncopal episodes at work, 3 while in transit to ED, 1 in ED, and with or without paroxysmal SVT. Episodes preceded by blurry vision and patient feeling like "her head was going to explode". Patient admitted for observation and workup of syncopal episodes. DDx includes hypercoagulability disorder, arrhythmia, TIA, CVA, vasovagal episodes, seizure disorder, narcolepsy. -MRI/CT 01/19 and 01/20 show no interval change from old left frontal lobe infarct with focal encephalomalacia -Carotid US 01/20 negative for carotid occlusion -ECHO 01/21 w/EF55%, no wall abnormality, mild R ventricular enlargement; otherwise normal study -Lexiscan stress test pending -2004 hypercoagulability study "negative" for hypercoag disorder; however, Homocysteine level abnormally high (19.9), heterozygous Factor V Leiden mutation , and -EEG 01/20 report in draft (Ulises Matthew MD R1) Attending Attestation Patient seen and examined. Case reviewed and discussed Agree with plan of care as discussed with me and documented in the resident note. (Rhina Shepherd MD) Problem List: (1) Syncopal episodes ICD Codes: R55 - Syncope and collapse Status: Acute Plan: Differential Diagnosis: cardiogenic vs neurogenic syncope * Cardiac arrhythmia versus seizure versus vago-vasal episode Cardiac workup: * EKG with evidence of sinus tachycardia, possible right ventricular conduction delay. * Continuous cardiac monitoring/telemetry. * Consider serial cardiac enzymes and EKGs if patient complains of chest pain. * Serial troponins <0.02; no interval changes of ECGs showing partial RBBB * Orthostatic BP checks 0800/2000 hours * Lipid profile pending * Cardiology consulted and following recs * ECHO 2D 01/21 -- EF 55% w/mild right ventricular enlargement; otherwise normal ECHO * Lexiscan exercise stress test pending Neurology workup: * Consult neurology. * Neuro checks q4h. * EEG - she refused EEG on admit but agreed to one on 01/20--report pending Vago-vasal workup: * Orthostatic blood pressure negative in ED. * As per above. (2) SVT (supraventricular tachycardia) ICD Codes: I47.1 - Supraventricular tachycardia Status: Acute Plan: One episode of SVT noted in transit to hospital. See Syncopal episodes- cardiac workup. (3) DVT (deep venous thrombosis) ICD Codes: I82.409 - Acute embolism and thrombosis of unspecified deep veins of unspecified lower extremity Status: Acute Plan: Patient with history of bilateral DVTs. Calf tenderness upon palpation bilaterally w/venous stasis dermatitis. * Ultrasound of lower extremities bilateral - normal examination. * DVT prophylaxis - Lovenox 40 mg q24hr SQ. (4) Constipation ICD Codes: K59.00 - Constipation, unspecified Status: Chronic Plan: Patient complaining of left lower quadrant pain. CT abdomen with no acute findings. * Stool softeners ordered PRN. (5) HTN (hypertension) ICD Codes: I10 - Essential (primary) hypertension Status: Chronic Plan: Normotensive last 24 hours -Continue Lisinopril 10 mg daily (6) Venous stasis dermatitis of both lower extremities ICD Codes: I87.2 - Venous insufficiency (chronic) (peripheral) Status: Chronic Plan: Bilateral LE venous stasis dermatitis below knee -NISHA hose (7) UTI (urinary tract infection) ICD Codes: N39.0 - Urinary tract infection, site not specified Status: Resolved Plan: Asymptomatic. UA with evidence of small occult blood, moderate leukocyte esterase, 6 red blood cells, moderate bacteria. Culture indicated. * Urine cx with normal saulo--likely contaminated (8) Fluid, electrolyte, nutrition and prophylaxis Status: Acute Plan: Fluid * Tolerating PO. Electrolytes * Monitor and replete as necessary. Nutrition * Heart healthy diet. Prophylaxis * Lovenox 40mg q24hr SQ * Multiple risk factors for cardiovascular disease: Atorvastatin 40 mg/day * Lipid panel pending (Ulises Matthew MD R1) Problem Qualifiers (1) Syncopal episodes: Qualified Codes: R55 - Syncope and collapse (2) DVT (deep venous thrombosis): (3) HTN (hypertension): Qualified Codes: I10 - Essential (primary) hypertension Ulises Matthew MD R1 Jan 21, 2017 10:29 Rhina Shepherd MD Jan 22, 2017 08:12
--- NOTE | 2017-01-21 12:00 | ECHRPT ---
Indication: cva/tia CONCLUSIONS Normal left ventricular size. Wall thickness is normal. The left ventricular systolic function is normal with an estimated ejection fraction of 55%. The rig ht ventricle is mildly dilated. Trace mitral valve regurgitation. The estimated pulmonary arterial pressure is 30 mmHg. The pulmonary valve is not well visualized. BP: 130 / 72 HR: 72 Rhythm: MEASUREMENTS (Male / Female) Normal Values Technical Quality:Good 2D ECHO LV Diastolic Diameter PLAX 5.4 cm 4.2 - 5.9 / 3.9 - 5.3 cm LV Systolic Diameter PLAX 4.4 cm IVS Diastolic Thickness 1.0 cm 0.6 - 1.0 / 0.6 - 0.9 cm LVPW Diastolic Thickness 0.8 cm 0.6 - 1.0 / 0.6 - 0.9 cm LV Relative Wall Thickness 0.3 RV Internal Dim ED PLAX 2.5 cm LA Systolic Diameter LX 3.7 cm 3.0 - 4.0 / 2.7 - 3.8 cm M-MODE Aortic Root Diameter MM 3.4 cm AV Cusp Separation MM 2.1 cm DOPPLER Mitral E Point Velocity 68.1 cm/s Mitral A Point Velocity 80.9 cm/s Mitral E to A Ratio 0.8 TR Peak Velocity 223.0 cm/s TR Peak Gradient 19.9 mmHg FINDINGS LEFT VENTRICLE Normal left ventricular size. Wall thickness is normal. The left ventricular systolic function is normal with an estimated ejection fraction of 55%. RIGHT VENTRICLE The right ventricle is mildly dilated. LEFT ATRIUM The left atrial size is normal. RIGHT ATRIUM The right atrial size is normal. ATRIAL SEPTUM Normal atrial septal thickness without atrial level shunting by limited color doppler interrogation. AORTA The aortic root and proximal ascending aorta are normal in size on limited imaging. MITRAL VALVE Trace mitral valve regurgitation. AORTIC VALVE Trileaflet aortic valve. No aortic valve stenosis or regurgitation. TRICUSPID VALVE The estimated pulmonary arterial pressure is 30 mmHg. PULMONARY VALVE The pulmonary valve is not well visualized. VESSELS The inferior vena cava is normal in size. PERICARDIUM No pericardial effusion. Carlyle Meyer MD (Electronically Signed) Final Date:21 January 2017 11:59
[2017-01-21] MEDS ORDERED: REGADENOSON INJ 0.4 MG/5 ML SYR ONE (13:28)
--- NOTE | 2017-01-21 16:27 | HHI.PR ---
Review/Management Diagnosis SZ vs syncope Plan f/u EEG continue [facility] for possibility of seizure Diagnosis/Plan: Subjective Subjective Comments Pt states she lost consciousness during stress test Active Medications Current Medications Medications (Trade) Dose Ordered Sig/Alexx Route Start Time Stop Time Status Last Admin (NS Flush) 2 ml UNSCH PRN IV FLUSH 01/19/17 21:00 (NS Flush) 2 ml BID IV FLUSH 01/19/17 21:00 01/21/17 09:07 (Tylenol) 650 mg Q4H PRN PO 01/19/17 22:00 01/20/17 21:41 (Zofran Inj) 4 mg Q6H PRN IVP 01/19/17 22:00 (Narcan Inj) 0.4 mg UNSCH PRN IV 01/19/17 22:00 (Jennifer-Colace) 1 tab BID PO 01/19/17 22:00 01/21/17 09:08 (Milk Of Magnesia Liq) 30 ml Q12H PRN PO 01/19/17 22:00 (Senokot) 17.2 mg Q12H PRN PO 01/19/17 22:00 (Dulcolax Supp) 10 mg DAILY PRN RECTAL 01/19/17 22:00 (Lactulose Liq) 30 ml DAILY PRN PO 01/19/17 22:00 (Tylenol) 650 mg Q6H PRN PO 01/19/17 22:00 (Crum 5-325 Mg) 1 tab Q4H PRN PO 01/19/17 22:00 (Crum 10-325 Mg) 1 tab Q4H PRN PO 01/19/17 22:00 01/20/17 16:05 (Morphine Inj) 4 mg Q3H PRN IV 01/19/17 22:00 (Narcan Inj) 0.4 mg UNSCH PRN IV 01/19/17 22:00 (Lipitor) 40 mg HS PO 01/20/17 21:00 01/20/17 21:42 (Aspirin Chew) 81 mg DAILY CHEW 01/20/17 10:30 01/21/17 09:08 (Prinivil) 10 mg DAILY PO 01/20/17 13:00 01/21/17 09:07 (Xarelto) 20 mg DAILY PO 01/20/17 14:15 01/21/17 09:08 (Keppra) 500 mg Q12HR PO 01/20/17 21:00 01/21/17 09:08 (Ativan Inj) 1 mg Q4H PRN IV PUSH 01/20/17 16:15 01/20/17 17:21 Allergies Allergies Coded Allergies codeine (Unverified Allergy, Severe, 01/19/17) Exam I&O / VS 01/21/17 01/21/17 01/22/17 14:59 22:59 06:59 # Voids 1 Vital Signs Date Time Temp Pulse Resp B/P (MAP) Pulse Ox O2 Delivery O2 Flow Rate FiO2 01/21/17 15:40 97.8 79 18 140/71 (94) 99 01/21/17 11:43 97.3 80 16 123/70 (87) 99 135/73 (93) 136/80 (98) 01/21/17 08:20 96 Nasal Cannula 3.00 01/21/17 08:15 97.5 70 16 132/71 (91) 99 01/21/17 07:00 81 01/21/17 03:31 97.9 82 19 115/69 (84) 98 01/21/17 00:11 97.8 85 17 120/65 (83) 96 01/21/17 00:00 78 01/20/17 21:28 97 Nasal Cannula 2.00 01/20/17 21:25 84 01/20/17 19:28 98.0 83 18 113/61 (78) 96 Exam Comments alert, speech normal Cn normal MOTOR--5/5 BUE Objective Radiology Results MRI brain --area of encephalomalacia left frontal lobe Micro and Labs Laboratory Tests Test 01/20/17 16:30 Total Creatine Kinase 45 Troponin I LESS THAN 0.02 Date/Time Source Procedure Growth Status 01/19/17 17:15 Urine Random Urine Urine Culture - Final 50-100,000 CFU/ML MIXED NIKHIL... Complete Diagnostic Tests ECHO--EF 55 %. RV enlargement Juan Guerra PhD MD Jan 21, 2017 16:26
--- NOTE | 2017-01-21 16:48 | RADRPT ---
EXAM DATE/TIME: 01/21/2017 12:49 [facility] COMPARISON: No previous studies available for comparison. INDICATIONS : Syncope. Coronary atherosclerosis. DOSE: 35 mCi Tc99m Myoview at stress. 11 mCi Tc99m Myoview at rest. 0.4 mg Lexiscan STRESS SYMPTOMS: None. EJECTION FRACTION: 57% MEDICAL HISTORY : Hypertension. Stroke SURGICAL HISTORY : Cholecystectomy. ENCOUNTER: Initial ACUITY: 1 day PAIN SCALE: 3/10 LOCATION: Midsternal chest TECHNIQUE: The patient underwent pharmacologic stress with infusion of prescribed dose. Continuous ECG tracing was monitored during stress. Gated SPECT imaging was performed after stress and conventional SPECT i maging was performed at rest. The examination was performed on a SPECT/CT scanner, both attenuation and non-corrected datasets were reviewed. FINDINGS: DISTRIBUTION: The maximum perfused segment at stress is in the septal wall. PERFUSION STUDY: There is moderately diminished relative perfusion involving the lateral wall and mildly-moderately di minished perfusion involving the anterior wall, not fully extending to the cardiac apex. There does a ppear to be moderate redistribution to these territories. GATED STUDY: There is intact wall motion and thickening without hypokinetic or dyskinetic segments. CONCLUSION: Multi-territory perfusion abnormalities with redistribution. RISK CATEGORY: High (>3% Annual Mortality Rate) Inder Ambrocio MD on January 21, 2017 at 16:36 Board Certified Radiologist. This report was verified electronically.
[2017-01-21] MEDS: ATORVASTATIN 40 MG TAB PO SCH (21:14)
[2017-01-21 21:47] LABS: AUTOMATED NEUTROPHIL # 5.5 TH/MM3 (1.8-7.7); BASOPHIL % 0.4 % (0.0-2.0); EOSINOPHIL # 0.3 TH/MM3 (0-0.4); EOSINOPHIL % 4.1 % (0.0-4.0); HEMATOCRIT 40.6 % (35.0-46.0); LYMPH % 20.9 % (9.0-44.0); LYMPHOCYTE # 1.7 TH/MM3 (1.0-4.8); MEAN CELL VOLUME 90.7 FL (80.0-100.0); MEAN CORPUSCULAR HEMOGLOBIN 29.6 PG (27.0-34.0); MEAN CORPUSCULAR HGB CONC 32.7 % (32.0-36.0); MONO % 6.1 % (0.0-8.0); NEUT % 68.5 % (16.0-70.0); PLATELET COUNT 193 TH/MM3 (150-450); RED BLOOD COUNT 4.48 MIL/MM3 (4.00-5.30); RED CELL DISTRIBUTION WIDTH 14.5 % (11.6-17.2)
[2017-01-21 21:57] LABS: HEMO FLAGS AUTO DIFF
[2017-01-21 22:04] LABS: MAGNESIUM 2.2 MG/DL (1.5-2.5); POTASSIUM 3.3 MEQ/L (3.5-5.1)
[2017-01-21 22:08] LABS: HDL CHOLESTEROL 36.5 MG/DL (40.0-60.0)
[2017-01-21 22:28] LABS: PLATELET ESTIMATE SMEAR NORMAL (NORMAL); PLATELET MORPHOLOGY NORMAL (NORMAL); SCAN/DIFF AUTO DIFF CONFIRMED
[2017-01-22 03:30] VITALS: BP 125/58; PULSE 75; RESP 17; TEMP 98.3; O2SAT 95
[2017-01-22 08:00] VITALS: BP 136/86; PULSE 83; RESP 20; TEMP 97.8; O2SAT 95
[2017-01-22 08:42] VITALS: O2SAT 94
[2017-01-22] MEDS: SODIUM CHLORIDE 0.9% FLUSH 10 ML FLUSH IV FLUSH SCH ×2 (09:00→21:00)
[2017-01-22] MEDS: levETIRAcetam 500 MG TAB PO SCH ×2 (09:15→23:47)
[2017-01-22] MEDS: DOCUSATE SODIUM 50 MG/SENNA 8.6 MG TAB PO SCH ×2 (09:15→23:46)
[2017-01-22] MEDS: ASPIRIN 81 MG CHEW TAB CHEW SCH (09:15)
[2017-01-22] MEDS: LISINOPRIL 10 MG TAB PO SCH (09:16)
[2017-01-22] MEDS: RIVAROXABAN 20 MG TAB PO SCH (09:20)
[2017-01-22] MEDS ORDERED: SODIUM CHLOR 0.9% 1000 ML INJ 1,000 ML IV SCH (10:45)
[2017-01-22 11:20] LABS: AUTOMATED NEUTROPHIL # 4.2 TH/MM3 (1.8-7.7); BASOPHIL % 0.5 % (0.0-2.0); EOSINOPHIL # 0.3 TH/MM3 (0-0.4); EOSINOPHIL % 4.6 % (0.0-4.0); HEMATOCRIT 40.8 % (35.0-46.0); HEMO FLAGS DIFF FINAL; LYMPH % 21.5 % (9.0-44.0); LYMPHOCYTE # 1.4 TH/MM3 (1.0-4.8); MEAN CORPUSCULAR HEMOGLOBIN 29.9 PG (27.0-34.0); MEAN CORPUSCULAR HGB CONC 32.9 % (32.0-36.0); MONO % 6.8 % (0.0-8.0); NEUT % 66.6 % (16.0-70.0); PLATELET COUNT 196 TH/MM3 (150-450); RED BLOOD COUNT 4.48 MIL/MM3 (4.00-5.30); RED CELL DISTRIBUTION WIDTH 14.9 % (11.6-17.2); WHITE BLOOD COUNT 6.3 TH/MM3 (4.0-11.0)
[2017-01-22 11:34] LABS: BICARBONATE 25.5 MEQ/L (21.0-32.0); POTASSIUM 3.6 MEQ/L (3.5-5.1)
[2017-01-22] MEDS: ACETAMINOPHEN 325 MG TAB PO PRN (11:44)
[2017-01-22 12:00] VITALS: BP 154/74; PULSE 80; RESP 20; TEMP 98; O2SAT 96
[2017-01-22] MEDS ORDERED: HEPARIN-NS/PF INJ 1,000 ML ONE (13:19)
[2017-01-22] MEDS ORDERED: MIDAZOLAM HCL 2 MG/2 ML VIAL ONE (13:20)
[2017-01-22] MEDS ORDERED: VERAPAMIL HCL 5 MG/2 ML VIAL ONE (13:20)
[2017-01-22] MEDS ORDERED: HEPARIN SODIUM - IV 10,000 UNITS/10 ML VIAL ONE (13:21)
[2017-01-22] MEDS ORDERED: NITROGLYCERIN INJ 5 ML ONE (13:21)
--- NOTE | 2017-01-22 14:18 | HHI.FPPN ---
Subjective Remarks Mrs. Thomas was afebrile with intermittent HTN overnight. Patient reports anxiety regarding possible heart problem on recent stress test; she states that she was crying overnight. Patient reports chest pain and shortness of breath yesterday in regards to her stress test but states that she does not have symptoms today. Patient also reports that she was told she had loss of consciousness during stress test. Patient does not report abnormal BM or urination; she reports "queaz"iness today. (Carlo Ryan MD, R3) Objective Vitals Vital Signs Date Time Temp Pulse Resp B/P (MAP) Pulse Ox O2 Delivery O2 Flow Rate FiO2 01/22/17 12:00 98.0 80 20 154/74 (100) 96 01/22/17 08:00 97.8 83 20 136/86 (103) 95 01/22/17 03:30 98.3 75 17 125/58 (80) 95 01/21/17 20:26 98 Nasal Cannula 3.50 01/21/17 19:40 98.1 78 18 139/70 (93) 98 01/21/17 15:40 97.8 79 18 140/71 (94) 99 I/O 01/21/17 01/21/17 01/21/17 01/22/17 01/22/17 01/22/17 07:00 15:00 23:00 07:00 15:00 23:00 Intake Total 120 ml Balance 120 ml Intake Oral 120 ml # Voids 1 1 (Carlo Ryan MD, R3) Result Diagram: 01/22/17 1017 01/22/17 1017 Imaging Last Impressions Myocardial Perfusion Scan Nuc Med 01/21/17 0000 Signed Impressions: Service Date/Time: January 12:49 - CONCLUSION: Multi-territory perfusion abnormalities with redistribution. RISK CATEGORY: High (>3%% Annual Mortality Rate) Inder Ambrocio MD Carotid Artery Ultrasound 01/20/17 0000 Signed Impressions: Service Date/Time: Friday, January 20, 2017 10:33 - CONCLUSION: No evidence of flow-limiting carotid stenosis. Inder Ambrocio MD Brain MRI 01/20/17 0000 Signed Impressions: Service Date/Time: Friday, January 20, 2017 20:09 - CONCLUSION: Focal encephalomalacia left frontal lobe similar to recent CT. No acute findings. No recent infarct. Solo Ramirez MD Head CT 01/19/17 1610 Signed Impressions: Service Date/Time: Thursday, January 19, 2017 19:35 - CONCLUSION: Focal encephalomalacia left frontal lobe measuring up to 2.7 cm, possibly from subacute or old infarct. No acute intracranial abnormality. Solo Ramirez MD Chest X-Ray 01/19/170 Signed Impressions: Service Date/Time: Thursday, January 19, 2017 16:14 - CONCLUSION: Mild left base atelectasis. Inder Medel MD Abdomen/Pelvis CT 01/19/17 1610 Signed Impressions: Service Date/Time: Thursday, January 19, 2017 19:41 - CONCLUSION: 1. No acute findings. Appendix normal. No obstructive uropathy. Cholecystectomy. Solo Ramirez MD Lower Extremity Ultrasound 01/19/17 0000 Signed Impressions: Service Date/Time: Thursday, January 19, 2017 21:58 - CONCLUSION: Normal examination. Solo Ramirez MD Objective Remarks GENERAL: NAD; mild anxiety SKIN: Warm and dry EYES: No scleral icterus. No injection or drainage. EOM grossly I. CARDIOVASCULAR: Regular rate and rhythm without murmurs. Normal peripheral perfusion grossly. RESPIRATORY: Breath sounds equal bilaterally. No accessory muscle use. No increased WOB. GASTROINTESTINAL: Abdomen soft, nontender. normal BS EXTREMITIES: No cyanosis, or edema. Ambulation/ full ROM not assessed NEUROLOGICAL: Grossly normal cranial nerves; grossly normal motor and sensory function peripherally (Carlo Ryan MD, R3) A/P Assessment and Plan Patient is a 51 year old female who presents to [facility] ED via EMS following a syncopal episodes at work (Carlo Ryan MD, R3) Attending Attestation Patient seen and examined. Case reviewed and discussed Agree with plan of care as discussed with me and documented in the resident note. (Rhina Shepherd MD) Problem List: (1) Syncopal episodes ICD Codes: R55 - Syncope and collapse Status: Acute Plan: Differential Diagnosis: cardiogenic vs neurogenic syncope Cardiac workup: Echo 01/21 with EF 55%; RV enlargement EKG with evidence of sinus tachycardia, possible right ventricular conduction delay Nuclear stress test with multi-territory perfusion abnormalities with redistribution; high risk Lipid profile with Cholesterol 115, LDL 52, HDL 36.5 * Continuous cardiac monitoring/telemetry * Cardiology consulted * Plan for L heart catheterization today * Continue CAD treatment with ASA, Atorvastatin 40mg, Lisinopril 10mg daily Neurology workup: MRI with L frontal encephalomalacia; MRI/CT 01/19 and 01/20 show no interval change from 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 No epileptic activity noted * Consult neurology * Neurochecks * Continue Keppra 500mg BID for possible seizure Vago-vasal workup: * Orthostatic blood pressure negative in ED. * As per above. (2) SVT (supraventricular tachycardia) ICD Codes: I47.1 - Supraventricular tachycardia Status: Acute Plan: Impression: One episode of SVT noted in transit to hospital. Telemetry without known supraventricular tachycardia or other arrhythmia Echo 01/21 with normal EF; LV dilation -Continue telemetry -Continue cardiac work-up (3) DVT (deep venous thrombosis) ICD Codes: I82.409 - Acute embolism and thrombosis of unspecified deep veins of unspecified lower extremity Status: Acute Plan: Patient with history of bilateral DVTs temporally spaced. Calf tenderness upon palpation bilaterally w/venous stasis dermatitis; Ultrasound of lower extremities bilateral - normal examination. Prior hypercoagulability work- up >10 yr prior without definitive diagnosis. 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 CT abdomen with no acute findings. * Stool softeners ordered PRN. * Will add PRN Miralax (5) HTN (hypertension) ICD Codes: I10 - Essential (primary) hypertension Status: Chronic Plan: Normotensive last 24 hours -Continue Lisinopril 10 mg daily (6) Venous stasis dermatitis of both lower extremities ICD Codes: I87.2 - Venous insufficiency (chronic) (peripheral) Status: Chronic Plan: Bilateral LE venous stasis dermatitis below knee -NISHA recinos (7) UTI (urinary tract infection) ICD Codes: N39.0 - Urinary tract infection, site not specified Status: Resolved Plan: Impression: Initial suspicion for asymptomatic UTI based on urinalysis; urine culture suggestive of contamination with 50-100 K mixed saulo (8) Fluid, electrolyte, nutrition and prophylaxis Status: Resolved Plan: Fluid * Maintenance fluids started while nothing by mouth Electrolytes * Monitor and replete as necessary. Nutrition * Nothing by mouth while anticipating catheterization Prophylaxis * SCD's * On Rivaroxaban (Carlo Ryan MD, R3) Problem Qualifiers (1) Syncopal episodes: Qualified Codes: R55 - Syncope and collapse (2) DVT (deep venous thrombosis): (3) HTN (hypertension): Qualified Codes: I10 - Essential (primary) hypertension Carlo Ryan MD, R3 Jan 22, 2017 14:18 Rhina Shepherd MD Jan 24, 2017 15:51
[2017-01-22] MEDS ORDERED: POLYETHYLENE GLYCOL 17 GM PKG PO PRN (14:45)
--- NOTE | 2017-01-22 14:47 | CATHPROC ---
UB. HIS Report Study Information Study Number Admission Scheduled Start Study Start [id number] Jan 21 2017 5:24PM 01/22/2017 Jan 22 2017 1:13PM [place] Service Cardiac Catheterization Admit Source Facility Department Emergency department [facility] - Receptionist Clerk Physician and Clinical Staff Initial Scott Hernandez Classified Advertising Supervisor Kenya Ratliff,ADIEL Classified Advertising Supervisor Светлана Pinto RN Recorder Yudith, Maurice,RT(R) Scrub [place] Gallo,DANIA TECH2 Procedures Performed Procedure Location (Site) Vessel Name Coronary Angiograms LCA Left Coronary Coronary Angiograms RCA Right Coronary L Heart Cath LV Gram-hand inj. LV LV Ventricle Wire insertion Radial (right) Radial Art. Equipment Time Mail Carrier Description Size Mfg Part Number Used/Scraped TRANSDUCER, TRUWAVE [id number] 13:25 RUGGIERO RILEY * Used W/STOCKCOCK *[id number] *[id number] *[id number] *[id number] WIRE, HYDROSTEER 260CM [id number] 14:30 DAIG[employer] 260CM Used ANGLED GLIDE *[id number] 13:25 [employer] PACK, CCL CUSTOM * Used *[id number] 13:25 [employer] SUPPORT, ARTERIAL ADULT [id number] *[id number] Used BAND, RADIAL COMPRESSION TR [id number] 14:42 [employer] 29CM Used LARGE 29 *[id number] 13:25 C[employer]le WIRE, 3MMJ .035 180CM 180CM Used *[id number] 13:25 NAMIC MANIFOLD, 4 PORT * Used *[id number] 13:25 [employer]ED OMNIPAQUE, 350 MG, 150ML 150ML [id number] Used [id number] 13:25 [employer] BL[employer]ET,WARM AIR CCL * Used *[id number] SHEATH, FR6 TRANSRADIAL [id number] 13:25 FusionOne FR 6 Used SLENDER 10CM *[id number] Equipment Model, Serial, Lot Number and Expiration Data Description Model Number Serial Number Lot Number Expiration Date WIRE, HYDROSTEER 260CM [id number] 06-16-2019 ANGLED GLIDE History: Current Medications Medication Dosage/Unit Route Frequency Last Date/Time Taken ASA LIPITOR XARELTO LISINOPRIL History: Allergies Allergy Reaction codeine History: Risk Factors Family History of Hypertension Dyslipidemia Previous ND Previous Heart Failure Premature CAD Yes No No No No Prior Valve Prior PCI Prior CABG Surgery No No No Cerebrovascular Peripheral Artery Chronic Lung On Dialysis Diabetes Disease Disease Disease No Yes No No No History: Stress Tests Stress or Imaging Studies Performed Yes Standard Exercise Stress Test No Stress Echo No Stress Test SPECT Stress Test SPECT Result Stress Test SPECT Ischemia Risk/Extent Yes Positive High Stress Test CMR No Cardiac CTA Coronary Calcium Score No No History: Other Current Smoker No Labs Hgb (g/dl) Hct (%) WBC (l/cumm) Platelets (thousands) 11.60-17.00 35.00-51.00 4.00-11.00 150.00-450.00 13.4 40.8 6.3 196 Glucose (mg/dl) 74.00-106.00 80 Na (meq/l) K (meq/l) 136.00-145.00 3.50-5.10 140 3.6 INR (PTT:PT) 0.90-1.10 1 Troponin I (ng/ml) CPK-MB (ng/ML) 0.02-0.05 0.50-3.60 0.02 Not Drawn Medication Medication Total Dose (Bolus/Oral) Medication Total Dosage/Unit 1% XYLOCAINE 20 mL FENTANYL 100 mcg RADIAL COCKTAIL 5 mL (Bolus) VERSED 2 mg Medications (Bolus/Oral) Medication Time Given Dosage/Unit Administered By Reason VERSED 01/22/2017 2:24:16 PM 1 mg Светлана Pinto 1 mg VERSED given in lab by Светлана Pinto RN in Left Wrist via Peripheral IV. Ordered by Scott Sexton. FENTANYL 01/22/2017 2:25:16 PM 25 mcg Светлана Pinto 25 mcg FENTANYL given in lab by Светлана Pinto RN in Left Wrist via Peripheral IV. Ordered by Scott Estrada. Ntg 200mcg Verapamil 2.5mg Heparin RADIAL COCKTAIL 01/22/2017 2:26:24 PM 5 mL (Bolus) Scott Huff 2500U 5 mL (Bolus) RADIAL COCKTAIL given in lab by Scott Huff in Right Radial via Radial. Using [Maria A ution Name]. Ordered by Scott Huff. Reason: Ntg 200mcg Verapamil 2.5mg Heparin 2500U. 1% XYLOCAINE 01/22/2017 2:26:37 PM 20 mL Scott Huff 20 mL 1% XYLOCAINE given in lab by Scott Huff in Right Radial via Subcutaneous. Ordered by Scott Chahal. VERSED 01/22/2017 2:33:38 PM 1 mg Светлана Pinto 1 mg VERSED given in lab by Светлана Pinto RN in Left Wrist via Peripheral IV. Ordered by Scott Sexton. FENTANYL 01/22/2017 2:34:35 PM 25 mcg Lorena Pintoara 25 mcg FENTANYL given in lab by Светлана Pinto RN in Left Wrist via Peripheral IV. Ordered by Scott Estrada. FENTANYL 01/22/2017 2:36:24 PM 25 mcg Millie, Светлана 25 mcg FENTANYL given in lab by Светлана Pinto RN in Left Wrist via Peripheral IV. Ordered by Scott Estrada. FENTANYL 01/22/2017 2:38:13 PM 25 mcg Светлана Pinto 25 mcg FENTANYL given in lab by Светлана Pinto RN via Peripheral IV. Ordered by Scott Huff. Initial Case Assessment Cardiovascular HR Rhythm NIBP Chest Pain 80 sr 168/99 0 Edema Present Skin color Skin None Normal Warm Dry Circulatory - Right Pulses Dorsalis Pedis Femoral Radial 1 2 1 Scale (0,1,2,3,4,d) Scale (0,1,2,3,4,d) Neurological State Oriented to time-place- Alert Moves all extremities person Respiration - General Respiration Rate SpO2 (%) O2 (lpm) (B/min) 18 98 0 Final Case Assessment Cardiovascular HR Rhythm NIBP Chest Pain 68 sr 162/71 0 Edema Present Skin color Skin None Normal Warm Dry Circulatory - Right Pulses Dorsalis Pedis Femoral Radial 1 2 1 Scale (0,1,2,3,4,d) Scale (0,1,2,3,4,d) Neurological State Oriented to time-place- Alert Moves all extremities person Respiration - General Respiration Rate SpO2 (%) O2 (lpm) (B/min) 18 99 0 Chronological Log Time Study Chronological Log 13:15:57 Patient arrived via Bed. positive Allens test performed by Fidencio Sue. 13:15:57 Patient Name, D.O.B, / Armband Verified By R.N. 13:15:58 Consent signed by the physician and the patient and verified by the Receptionist Clerk staff. 13:15:59 Pre-op and post- op instructions given; patient acknowledges understanding of instructions. 13:16:02 Verbal Stimulation=2 Physical Stimulation=2 Airway=2 Respiration=2 TOTAL=8. (0=absent, 1=li mited, 2=present) 13:16:13 Allens test performed on the right radial and ulnar artery. 13:16:14 Patient has been NPO for More than 6Hrs. 13:16:15 Skin Breakdown-none breakdown. 13:16:16 Patient Warmer Placed on the Table. 13:16:18 Benedicto Prominences Protected 13:16:33 A # 18 IV was noted in the Forearm (left). Grade = 0 13:16:34 History and physical on the chart or being dictated. Vitals capture started with the following parameters, Patient=Adult, Interval=5 min, Initial Pr duuczf=659 mmHg, 13:23:27 Deflation Rate=5 mmHg, Cuff placed on Left Arm 13:24:07 QZ=114 bpm, OUNL=785/99 mmhg, SpO2=94.0 %, Resp=12 B/min, Alfred=2 Assessment: Initial Case, HR=80 BPM, Rhythm=sr, VRSW=551/99 mmhg, Chest Pain=0, Edema=None, Col or=Normal, Skin = Warm, Dry 13:26:04 Right Pulses: Alphonso Ped=1, Femoral=2, Radial=1 Neurological: State=Alert, Ox3, WIGGINS Respiration: Resp=18 B/min, SpO2=98 %, O2=0 lpm 13:29:10 HR=83 bpm, ECGI=435/108 mmhg, SpO2=97.0 %, Resp=9 B/min, Alfred=2 13:29:18 Reference ECG taken 13:30:00 IV access pt arrived on was no good, had to obtain new access. 13:33:48 Vitals capture stopped. 14:10:00 A # 20 IV was noted in the Wrist (left). Grade = 0 Placed in lab by Reema 14:10:00 Right groin and right radial prepped with 2% chlorhexidine, and with a 3 min. waiting time. Vitals capture started with the following parameters, Patient=Adult, Interval=5 min, Initial Pr mtgaul=260 mmHg, 14:10:11 Deflation Rate=5 mmHg, Cuff placed on Left Arm 14:10:55 HR=78 bpm, PSSS=266/92 mmhg, SpO2=96.0 %, Resp=11 B/min, Alfred=2 14:15:58 HR=78 bpm, WLRY=250/78 mmhg, SpO2=95 %, Resp=18 B/min, Alfred=2 14:19:03 Pressure channel 1 zeroed. 14:19:16 MD paged 14:20:00 MD arrived. 14:20:57 HR=79 bpm, OIST=706/86 mmhg, SpO2=87.0 %, Resp=9 B/min, Alfred=2 Time Out. Correct patient, correct procedure, correct physician, power injector not loaded with contrast with surgical 14:23:26 team present. Time Out Concurred by MD, individual staff in procedure. 14:24:16 1 mg VERSED given in lab by Светлана Pinto, ADIEL in Left Wrist via Peripheral IV. Ordered by Scott Huff. 14:25:05 Case Start 14:25:16 25 mcg FENTANYL given in lab by Светлана Pinto, ADIEL in Left Wrist via Peripheral IV. Ordere d by Scott Huff. 14:25:56 HR=73 bpm, ETQN=042/79 mmhg, GaH3=031.0 %, Resp=15 B/min, Alfred=2 5 mL (Bolus) RADIAL COCKTAIL given in lab by Scott Huff in Right Radial via Radial. Diana gibbons [Solution Name]. 14:26:24 Ordered by Scott Huff. Reason: Ntg 200mcg Verapamil 2.5mg Heparin 2500U. 20 mL 1% XYLOCAINE given in lab by Scott Huff in Right Radial via Subcutaneous. Ordered by Refugio 14:26:37 Scott. 14:26:45 Access site was Radial Artery. A SHEATH, FR6 TRANSRADIAL SLENDER 10CM FR 6 was advanced into the Radial (right) using the Perc utaneous 14::53 technique. A JR 4.0 INFINITI CATHETER FR 5 was advanced over a wire. OMNIPAQUE, 350 MG, 150ML 150ML was us ed for 14:27:45 injections. 14:30:36 A WIRE, HYDROSTEER 260CM ANGLED GLIDE 260CM was inserted via Radial (right). 14:30:59 HR=74 bpm, NISK=434/63 mmhg, SpO2=95.0 %, Resp=21 B/min, Alfred=2 14:33:00 Wire removed 14:33:38 1 mg VERSED given in lab by Светлана Pinto RN in Left Wrist via Peripheral IV. Ordered b y Scott Huff. Recorded Pressure: LV, HR=91, Condition=Condition 1 14:34:30 (Left Ventricle) LV 111/12/13 14:34:35 25 mcg FENTANYL given in lab by Светлана Pinto RN in Left Wrist via Peripheral IV. Order ed by Scott Huff. 14:34:45 The LV was manually injected with 10 cc's and visualized. OMNIPAQUE, 350 MG, 150ML 150ML u sed. Recorded Pressure: LV, Ao, HR=79, Condition=Condition 1 14:35:25 (Left Ventricle) LV 124/23/11, (Aorta) Ao 110/65/88 14:35:44 The RCA was injected and visualized at various angles. OMNIPAQUE, 350 MG, 150ML 150ML use d. 14:36:19 HR=67 bpm, ORUM=110/63 mmhg, Resp=18 B/min, Alfred=2 14:36:24 25 mcg FENTANYL given in lab by Светлана Pinto RN in Left Wrist via Peripheral IV. Order ed by Scott Huff. After removing the current catheter a JL 3.5 INFINITI CATHETER FR 5 was advanced over a WIRE, 3MMJ .035 180CM 14:37:50 180CM. 14:38:13 25 mcg FENTANYL given in lab by Светлана Pinto RN via Peripheral IV. Ordered by Scott Myles. 14:38:38 The LCA was injected and visualized at various angles. OMNIPAQUE, 350 MG, 150ML 150ML use d. 14:40:24 Catheter was removed Otw. 14:40:36 Case End 14:40:51 HR=68 bpm, ZGVR=021/71 mmhg, Resp=13 B/min, Alfred=2 Assessment: Final Case, HR=68 BPM, Rhythm=sr, UAUJ=933/71 mmhg, Chest Pain=0, Edema=None, Hunter r=Normal, Skin = Warm, Dry 14:42:59 Right Pulses: Alphonso Ped=1, Femoral=2, Radial=1 Neurological: State=Alert, Ox3, WIGGINS Respiration: Resp=18 B/min, SpO2=99 %, O2=0 lpm Radial Compression Device Used. 96 mLs of air placed in BAND, RADIAL COMPRESSION TR LARGE 29 2 9CM. Affected 14:43:42 hand 10 % O2 saturation. 14:43:53 No case complications noted. 14:43:54 Cine recording checked. 14:43:56 Bedside Report will be given. 14:44:01 A Left Heart Cath was performed. 14:45:54 HR=67 bpm, PDCJ=502/69 mmhg, Resp=19 B/min, Alfred=2 End Study - Contrast Media Used In Study Contrast Total Opened (mL) Total Used (mL) Total Wasted (mL) Omnipaque 40 40 0 End Study - Radiation Exposure Fluoro Time (minutes) 6.6 End Study - Patient Disposition Complications Transferred To No Telemetry Bed
--- NOTE | 2017-01-22 14:59 | PD.CARD.PN ---
Subjective Subjective Remarks no cv complaints results of stress test noted s/p C Objective Medications Current Medications Medications (Trade) Dose Ordered Sig/Alexx Route Start Time Stop Time Status Last Admin (NS Flush) 2 ml UNSCH PRN IV FLUSH 01/19/17 21:00 (NS Flush) 2 ml BID IV FLUSH 01/19/17 21:00 01/22/17 09:00 (Tylenol) 650 mg Q4H PRN PO 01/19/17 22:00 01/22/17 11:44 (Zofran Inj) 4 mg Q6H PRN IVP 01/19/17 22:00 (Narcan Inj) 0.4 mg UNSCH PRN IV 01/19/17 22:00 (Jennifer-Colace) 1 tab BID PO 01/19/17 22:00 01/22/17 09:15 (Milk Of Magnesia Liq) 30 ml Q12H PRN PO 01/19/17 22:00 (Senokot) 17.2 mg Q12H PRN PO 01/19/17 22:00 (Dulcolax Supp) 10 mg DAILY PRN RECTAL 01/19/17 22:00 (Lactulose Liq) 30 ml DAILY PRN PO 01/19/17 22:00 (Tylenol) 650 mg Q6H PRN PO 01/19/17 22:00 ([place] 5-325 Mg) 1 tab Q4H PRN PO 01/19/17 22:00 ([place] 10-325 Mg) 1 tab Q4H PRN PO 01/19/17 22:00 01/20/17 16:05 (Morphine Inj) 4 mg Q3H PRN IV 01/19/17 22:00 (Narcan Inj) 0.4 mg UNSCH PRN IV 01/19/17 22:00 (Lipitor) 40 mg HS PO 01/20/17 21:00 01/21/17 21:14 (Aspirin Chew) 81 mg DAILY CHEW 01/20/17 10:30 01/22/17 09:15 (Prinivil) 10 mg DAILY PO 01/20/17 13:00 01/22/17 09:16 (Xarelto) 20 mg DAILY PO 01/20/17 14:15 01/22/17 09:20 (Keppra) 500 mg Q12HR PO 01/20/17 21:00 01/22/17 09:15 (Ativan Inj) 1 mg Q4H PRN IV PUSH 01/20/17 16:15 01/20/17 17:21 Sodium Chloride 1,000 ml @ 150 mls/hr Q6H40M IV 01/22/17 10:45 01/22/17 10:45 (Miralax) 17 gm DAILY PRN PO 01/22/17 14:45 UNV Vital Signs / I&O Vital Signs Date Time Temp Pulse Resp B/P (MAP) Pulse Ox O2 Delivery O2 Flow Rate FiO2 01/22/17 12:00 98.0 80 20 154/74 (100) 96 01/22/17 08:42 94 21 01/22/17 08:00 97.8 83 20 136/86 (103) 95 01/22/17 03:30 98.3 75 17 125/58 (80) 95 01/21/17 20:26 98 Nasal Cannula 3.50 01/21/17 19:40 98.1 78 18 139/70 (93) 98 01/21/17 15:40 97.8 79 18 140/71 (94) 99 I/O 01/21/17 01/21/17 01/21/17 01/22/17 01/22/17 01/22/17 06:59 14:59 22:59 06:59 14:59 22:59 Intake Total 120 ml Balance 120 ml Intake Oral 120 ml # Voids 1 1 Physical Exam GENERAL: Well-nourished, well-developed patient. SKIN: Warm and dry. HEAD: Normocephalic. EYES: No scleral icterus. No injection or drainage. NECK: Supple, trachea midline. No JVD or lymphadenopathy. CARDIOVASCULAR: Regular rate and rhythm without murmurs, gallops, or rubs. RESPIRATORY: Breath sounds equal bilaterally. No accessory muscle use. GASTROINTESTINAL: Abdomen soft, non-tender, nondistended. EXTREMITIES: No cyanosis, or edema. NEUROLOGICAL: Awake, alert, and oriented x 3. Non-focal. Laboratory Laboratory Tests Test 01/21/17 21:21 01/22/17 10:17 White Blood Count 8.0 TH/MM3 6.3 TH/MM3 Red Blood Count 4.48 MIL/MM3 4.48 MIL/MM3 Hemoglobin 13.3 GM/DL 13.4 GM/DL Hematocrit 40.6 % 40.8 % Mean Corpuscular Volume 90.7 FL 91.0 FL Mean Corpuscular Hemoglobin 29.6 PG 29.9 PG Mean Corpuscular Hemoglobin Concent 32.7 % 32.9 % Red Cell Distribution Width 14.5 % 14.9 % Platelet Count 193 TH/MM3 196 TH/MM3 Mean Platelet Volume 8.3 FL 8.5 FL Neutrophils (%) (Auto) 68.5 % 66.6 % Lymphocytes (%) (Auto) 20.9 % 21.5 % Monocytes (%) (Auto) 6.1 % 6.8 % Eosinophils (%) (Auto) 4.1 % 4.6 % Basophils (%) (Auto) 0.4 % 0.5 % Neutrophils # (Auto) 5.5 TH/MM3 4.2 TH/MM3 Lymphocytes # (Auto) 1.7 TH/MM3 1.4 TH/MM3 Monocytes # (Auto) 0.5 TH/MM3 0.4 TH/MM3 Eosinophils # (Auto) 0.3 TH/MM3 0.3 TH/MM3 Basophils # (Auto) 0.0 TH/MM3 0.0 TH/MM3 CBC Comment AUTO DIFF DIFF FINAL Differential Comment AUTO DIFF CONFIRMED Platelet Estimate NORMAL Platelet Morphology Comment NORMAL Blood Urea Nitrogen 7 MG/DL 7 MG/DL Creatinine 0.73 MG/DL 0.71 MG/DL Random Glucose 94 MG/DL 80 MG/DL Calcium Level 8.3 MG/DL 8.3 MG/DL Magnesium Level 2.2 MG/DL Sodium Level 143 MEQ/L 140 MEQ/L Potassium Level 3.3 MEQ/L 3.6 MEQ/L Chloride Level 107 MEQ/L 105 MEQ/L Carbon Dioxide Level 29.0 MEQ/L 25.5 MEQ/L Anion Gap 7 MEQ/L 10 MEQ/L Estimat Glomerular Filtration Rate 83 ML/MIN 86 ML/MIN Triglycerides Level 131 MG/DL Cholesterol Level 115 MG/DL LDL Cholesterol 52 MG/DL HDL Cholesterol 36.5 MG/DL Cholesterol/HDL Ratio 3.15 RATIO Imaging Last Impressions Myocardial Perfusion Scan Nuc Med 01/21/17 0000 Signed Impressions: Service Date/Time: January 12:49 - CONCLUSION: Multi-territory perfusion abnormalities with redistribution. RISK CATEGORY: High (>3%% Annual Mortality Rate) Inder Ambrocio MD Carotid Artery Ultrasound 01/20/17 0000 Signed Impressions: Service Date/Time: Friday, January 20, 2017 10:33 - CONCLUSION: No evidence of flow-limiting carotid stenosis. Inder mAbrocio MD Brain MRI 01/20/17 0000 Signed Impressions: Service Date/Time: Friday, January 20, 2017 20:09 - CONCLUSION: Focal encephalomalacia left frontal lobe similar to recent CT. No acute findings. No recent infarct. Solo Ramirez MD Head CT 01/19/17 1610 Signed Impressions: Service Date/Time: Thursday, January 19, 2017 19:35 - CONCLUSION: Focal encephalomalacia left frontal lobe measuring up to 2.7 cm, possibly from subacute or old infarct. No acute intracranial abnormality. Solo Ramirez MD Chest X-Ray 01/19/171609 Signed Impressions: Service Date/Time: Thursday, January 19, 2017 16:14 - CONCLUSION: Mild left base atelectasis. Inder Medel MD Abdomen/Pelvis CT 01/19/171609 Signed Impressions: Service Date/Time: Thursday, January 19, 2017 19:41 - CONCLUSION: 1. No acute findings. Appendix normal. No obstructive uropathy. Cholecystectomy. Solo Ramirez MD Lower Extremity Ultrasound 01/19/17 0000 Signed Impressions: Service Date/Time: Thursday, January 19, 2017 21:58 - CONCLUSION: Normal examination. Solo Ramirez MD Assessment and Plan Problem List: (1) Syncopal episodes ICD Codes: R55 - Syncope and collapse Status: Acute Plan: Stress test results noted s/p LHC showing normal coronary arteries and normal L systolic function Plan: Cont Neuro work up. Cont Telemetry monitoring 48hr Holter upon discharge Follow up with cardiology upon discharge Will be available on a PRN basis for any questions or concerns (2) HTN (hypertension) ICD Codes: I10 - Essential (primary) hypertension Status: Chronic Problem Qualifiers (1) Syncopal episodes: Qualified Codes: R55 - Syncope and collapse (2) HTN (hypertension): Qualified Codes: I10 - Essential (primary) hypertension Scott Huff MD Jan 22, 2017 14:59
--- NOTE | 2017-01-22 15:12 | MG ---
cc: ROBIN ESQUEDA MD Lab No: [id number] Date: 01/22/17 Age: 51 Sex: F Race: DATE OF 1965 A 51-year-old history of syncopal episode. Low amplitude posterior rhythm demonstrating 8-9 Hz activity, 5-30 microvolts with frontal myogenic electrical artifact occurring. Reduced driving photic stimulation. Single lead EKG showing sinus rhythm. INTERPRETATION Low amplitude but normal appearing EEG. No epileptic activity. Clinical correlation. Robin Esqueda MD MG/EO /2:46 PM /3:04 PM
[2017-01-22] MEDS ORDERED: IOHEXOL 350 MG/ML 50 ML BTL (for Cath Lab) OTHER ONE (15:28)
--- NOTE | 2017-01-22 15:34 | MA ---
cc: HORACIO JOHNSTON DATE: 01/22/2017. PROCEDURE PERFORMED: 1. Left heart catheterization. 2. Selective right and left coronary angiography. 3. Left ventriculography. APPROACH: Right transradial. INDICATIONS FOR THE PROCEDURE: Syncope, positive stress test; high-risk. DESCRIPTION OF THE PROCEDURE IN DETAIL: Consent signed. The patient was taken to the cardiac catholic priest in a fasting state. The right wrist was prepped and draped in a sterile fashion using 1% lidocaine for local anesthesia and a micropuncture kit. A 6-Emirati sheath was inserted into the right radial artery. Antispasmodic cocktail given then selective right and left coronary angiography was performed with the JR-5 and a JL-3.5 diagnostic catheters. Angiography was taken in multiple views. The JR- 4 diagnostic catheter was introduced into the ventricle over a wire. This was followed by left ventricular pressure recordings, left ventriculogram and pullback. The patient tolerated the procedure well without complications. Estimated blood loss less than 30 mL. Total contrast was 40 mL. The right radial access site was closed with a TR band. RESULTS: Left ventricular pressure was 124/23 with an left ventricular end diastolic pressure of 11. The aortic pressure was 110/65 with a mean of 88. There was no gradient on pullback from the left ventricle to the aorta. LEFT VENTRICULOGRAM: The left ventriculogram revealed a symmetrically contractive ventricle with an estimated ejection fraction of 50%. ANGIOGRAPHY: 1. Right coronary artery - the right coronary artery is a dominant vessel. It has nonobstructive coronary artery disease. It is giving off the PDA and the PLB branches which are patent with LOLITA III flow and nonobstructive coronary artery disease. 2. The left main is patent with nonobstructive coronary artery disease. It is giving off the left anterior descending and a ramus intermedius vessel and the left circumflex artery. 3. The left anterior descending is a transapical vessel. It is giving off one diagonal branch which is small. The remainder of the left anterior descending is patent with LOLITA III and nonobstructive coronary artery disease. 4. Left circumflex - the left circumflex artery is giving off one high OM vessel which is patent and another second distal OM which is also patent. The left circumflex has nonobstructive coronary artery disease. 5. The ramus intermedius is patent with LOLITA III flow and nonobstructive coronary artery disease. CONCLUSIONS: 1. Nonobstructive coronary artery disease. 2. Preserved left ventricular systolic function. RECOMMENDATIONS: 1. Aggressive medical management for coronary artery disease. Therapeutic lifestyle changes. 2. The patient will go to the DOCU for post catheterization care. 3. She should be able to return to her room after bed rest. MD FRANSISCO Daly/YURY /2:45 PM /3:18 PM MTDAndre
[2017-01-22] MEDS: ACETAMINOPHEN/HYDROcodone 325 MG/10 MG TAB PO PRN ×2 (16:59→23:46)
[2017-01-22 17:58] VITALS: O2SAT 94
[2017-01-22 21:03] VITALS: BP 106/56; PULSE 70; RESP 18; TEMP 97.9; O2SAT 100
--- NOTE | 2017-01-22 21:37 | HHI.PR ---
Review/Management Diagnosis possible SZ Plan continue keppra for possibility of seizure Diagnosis/Plan: Subjective Subjective Comments No acute events reported No headache No loss of consciousness Active Medications Current Medications Medications (Trade) Dose Ordered Sig/Alexx Route Start Time Stop Time Status Last Admin (NS Flush) 2 ml UNSCH PRN IV FLUSH 01/19/17 21:00 (NS Flush) 2 ml BID IV FLUSH 01/19/17 21:00 01/22/17 09:00 (Tylenol) 650 mg Q4H PRN PO 01/19/17 22:00 01/22/17 11:44 (Zofran Inj) 4 mg Q6H PRN IVP 01/19/17 22:00 (Narcan Inj) 0.4 mg UNSCH PRN IV 01/19/17 22:00 (Jennifer-Colace) 1 tab BID PO 01/19/17 22:00 01/22/17 09:15 (Milk Of Magnesia Liq) 30 ml Q12H PRN PO 01/19/17 22:00 (Senokot) 17.2 mg Q12H PRN PO 01/19/17 22:00 (Dulcolax Supp) 10 mg DAILY PRN RECTAL 01/19/17 22:00 (Lactulose Liq) 30 ml DAILY PRN PO 01/19/17 22:00 (Tylenol) 650 mg Q6H PRN PO 01/19/17 22:00 ([place] 5-325 Mg) 1 tab Q4H PRN PO 01/19/17 22:00 ([place] 10-325 Mg) 1 tab Q4H PRN PO 01/19/17 22:00 01/22/17 16:59 (Morphine Inj) 4 mg Q3H PRN IV 01/19/17 22:00 (Narcan Inj) 0.4 mg UNSCH PRN IV 01/19/17 22:00 (Lipitor) 40 mg HS PO 01/20/17 21:00 01/21/17 21:14 (Aspirin Chew) 81 mg DAILY CHEW 01/20/17 10:30 01/22/17 09:15 (Prinivil) 10 mg DAILY PO 01/20/17 13:00 01/22/17 09:16 (Xarelto) 20 mg DAILY PO 01/20/17 14:15 01/22/17 09:20 (Keppra) 500 mg Q12HR PO 01/20/17 21:00 01/22/17 09:15 (Ativan Inj) 1 mg Q4H PRN IV PUSH 01/20/17 16:15 01/20/17 17:21 Sodium Chloride 1,000 ml @ 150 mls/hr Q6H40M IV 01/22/17 10:45 01/22/17 10:45 (Miralax) 17 gm DAILY PRN PO 01/22/17 14:45 Allergies Allergies Coded Allergies codeine (Unverified Allergy, Severe, 01/19/17) Exam I&O / VS Vital Signs Date Time Temp Pulse Resp B/P (MAP) Pulse Ox O2 Delivery O2 Flow Rate FiO2 01/22/17 21:03 97.9 70 18 106/56 (73) 100 01/22/17 17:58 94 21 01/22/17 15:19 94 Room Air 01/22/17 12:00 98.0 80 20 154/74 (100) 96 01/22/17 08:42 94 21 01/22/17 08:00 97.8 83 20 136/86 (103) 95 01/22/17 03:30 98.3 75 17 125/58 (80) 95 Exam Comments alert, speech normal Cn normal MOTOR--5/5 BUE Objective Micro and Labs Laboratory Tests Test 01/22/17 10:17 White Blood Count 6.3 Red Blood Count 4.48 Hemoglobin 13.4 Hematocrit 40.8 Mean Corpuscular Volume 91.0 Mean Corpuscular Hemoglobin 29.9 Mean Corpuscular Hemoglobin Concent 32.9 Red Cell Distribution Width 14.9 Platelet Count 196 Mean Platelet Volume 8.5 Neutrophils (%) (Auto) 66.6 Lymphocytes (%) (Auto) 21.5 Monocytes (%) (Auto) 6.8 Eosinophils (%) (Auto) 4.6 Basophils (%) (Auto) 0.5 Neutrophils # (Auto) 4.2 Lymphocytes # (Auto) 1.4 Monocytes # (Auto) 0.4 Eosinophils # (Auto) 0.3 Basophils # (Auto) 0.0 CBC Comment DIFF FINAL Differential Comment Blood Urea Nitrogen 7 Creatinine 0.71 Random Glucose 80 Calcium Level 8.3 Sodium Level 140 Potassium Level 3.6 Chloride Level 105 Carbon Dioxide Level 25.5 Anion Gap 10 Estimat Glomerular Filtration Rate 86 Date/Time Source Procedure Growth Status 01/19/17 17:15 Urine Random Urine Urine Culture - Final 50-100,000 CFU/ML MIXED NIKHIL... Complete Diagnostic Tests EEG--normal Juan Guerra PhD MD Jan 22, 2017 21:37
[2017-01-22] MEDS: ATORVASTATIN 40 MG TAB PO SCH (23:46)
[2017-01-23 00:10] VITALS: BP 108/54; PULSE 72; RESP 18; TEMP 97.6; O2SAT 100
[2017-01-23 05:17] VITALS: BP 125/58; PULSE 75; RESP 18; TEMP 97.5; O2SAT 100
[2017-01-23 08:00] VITALS: BP 125/59; PULSE 78; RESP 20; TEMP 98.6; O2SAT 95
[2017-01-23] MEDS ORDERED: LEVE500 PO (08:34)
[2017-01-23] MEDS ORDERED: ASPI81CH25 CHEW (08:34)
[2017-01-23] MEDS ORDERED: XARE20TA PO (08:34)
[2017-01-23] MEDS ORDERED: ATOR40TA16 PO (08:34)
[2017-01-23] MEDS ORDERED: LISI10TA3 PO (08:34)
[2017-01-23] MEDS ORDERED: METO25TA3 PO (08:34)
--- NOTE | 2017-01-23 08:36 | HHI.DCPOC ---
Discharge Care Plan Diagnosis: (1) Syncopal episodes Goals to Promote Your Health * To prevent worsening of your condition and complications, please take your medications as prescribed. * To maintain your health at the optimal level, please follow up with your doctor. Directions to Meet Your Goals Take your medications as prescribed Follow your dietary instruction Follow activity as directed Keep your appointments as scheduled Take your immunizations and boosters as scheduled If your symptoms worsen call your PCP, if no PCP go to Urgent Care Center or Emergency Room Smoking is Dangerous to Your Health. Avoid second hand smoke Call the 24-hour hour crisis hotline for domestic abuse at John Rm MD R2 Jan 23, 2017 08:36
[2017-01-23 10:24] LABS: AUTOMATED NEUTROPHIL # 3.7 TH/MM3 (1.8-7.7); BASOPHIL % 0.5 % (0.0-2.0); EOSINOPHIL # 0.2 TH/MM3 (0-0.4); EOSINOPHIL % 4.2 % (0.0-4.0); HEMATOCRIT 41.4 % (35.0-46.0); LYMPHOCYTE # 1.4 TH/MM3 (1.0-4.8); MEAN CELL VOLUME 90.2 FL (80.0-100.0); MEAN CORPUSCULAR HEMOGLOBIN 30.1 PG (27.0-34.0); MEAN CORPUSCULAR HGB CONC 33.4 % (32.0-36.0); MONO % 6.7 % (0.0-8.0); NEUT % 64.6 % (16.0-70.0); PLATELET COUNT 200 TH/MM3 (150-450); RED BLOOD COUNT 4.59 MIL/MM3 (4.00-5.30); RED CELL DISTRIBUTION WIDTH 14.6 % (11.6-17.2); WHITE BLOOD COUNT 5.7 TH/MM3 (4.0-11.0)
[2017-01-23 10:29] LABS: HEMO FLAGS AUTO DIFF
[2017-01-23 10:51] LABS: BICARBONATE 28.9 MEQ/L (21.0-32.0); POTASSIUM 3.5 MEQ/L (3.5-5.1)
[2017-01-23 11:14] LABS: SCAN/DIFF AUTO DIFF CONFIRMED
[2017-01-23 12:00] VITALS: BP 154/83; PULSE 96; RESP 18; TEMP 98.1; O2SAT 94
[2017-01-23] MEDS ORDERED: WALKER WHEELS/F1 MIS (12:33)
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
--- NOTE | 2017-01-25 15:02 | HHI.DS ---
Discharge Summary Admission Date Jan 21, 2017 at 17:24 Discharge Date: Jan 23, 2017 Admitting Diagnosis Syncopal episodes x 3 in 1 hour, arrhythmia, recent CVA (1) Syncopal episodes Diagnosis: Principal Plan: Differential Diagnosis: cardiogenic vs neurogenic syncope Cardiac workup: Echo 01/21 with EF 55%; RV enlargement EKG with evidence of sinus tachycardia, possible right ventricular conduction delay Nuclear stress test with multi-territory perfusion abnormalities with redistribution; high risk Lipid profile with Cholesterol 115, LDL 52, HDL 36.5 * Continuous cardiac monitoring/telemetry * Cardiology consulted * Plan for L heart catheterization today * Continue CAD treatment with ASA, Atorvastatin 40mg, Lisinopril 10mg daily, Metoprolol Neurology workup: MRI with L frontal encephalomalacia; MRI/CT 01/19 and 01/20 show no interval change from 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 No epileptic activity noted-- EEG determined to be negative * Consult neurology * Neurochecks * Continue Keppra 500mg BID for possible seizure -Discharge with Holter monitor for 48 hours ICD Codes: R55 - Syncope and collapse Status: Acute (2) SVT (supraventricular tachycardia) Diagnosis: Secondary Plan: Impression: One episode of SVT noted in transit to hospital. Telemetry without known supraventricular tachycardia or other arrhythmia Echo 01/21 with normal EF; LV dilation -D/C pt with Holter monitor for 48 hours ICD Codes: I47.1 - Supraventricular tachycardia Status: Acute (3) DVT (deep venous thrombosis) Diagnosis: Secondary Plan: Patient with history of bilateral DVTs temporally spaced. Calf tenderness upon palpation bilaterally w/venous stasis dermatitis; Ultrasound of lower extremities bilateral - normal examination. Prior hypercoagulability work- up >10 yr prior without definitive diagnosis. 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 CT abdomen with no acute findings. * Stool softeners ordered PRN. * Will add PRN Miralax ICD Codes: K59.00 - Constipation, unspecified Status: Chronic (5) HTN (hypertension) Diagnosis: Secondary Plan: Normotensive last 24 hours -Continue Lisinopril 10 mg daily ICD Codes: I10 - Essential (primary) hypertension Status: Chronic (6) Venous stasis dermatitis of both lower extremities Diagnosis: Secondary Plan: Bilateral LE venous stasis dermatitis below knee -NISHA recinos ICD Codes: I87.2 - Venous insufficiency (chronic) (peripheral) Status: Chronic (7) UTI (urinary tract infection) Diagnosis: Secondary Plan: Impression: Initial suspicion for asymptomatic UTI based on urinalysis; urine culture suggestive of contamination with 50-100 K mixed saulo ICD Codes: N39.0 - Urinary tract infection, site not specified Status: Resolved (8) Fluid, electrolyte, nutrition and prophylaxis Diagnosis: Secondary Plan: Fluid * Maintenance fluids started while nothing by mouth Electrolytes * Monitor and replete as necessary. Nutrition * Nothing by mouth while anticipating catheterization Prophylaxis * SCD's * On Xarelto Status: Resolved Consultants Cardiology, neurology Procedures Cardiac catheterization: Performed by HORACIO JOHNSTON DATE: 01/22/2017. CONCLUSIONS: 1. Nonobstructive coronary artery disease. 2. Preserved left ventricular systolic function. RECOMMENDATIONS: 1. Aggressive medical management for coronary artery disease. EEG on 01/22/17: INTERPRETATION Low amplitude but normal appearing EEG. No epileptic activity. Clinical correlation. Brief History Patient is a 51 year old female who presents to the [facility] ED via EMS following a syncopal episode at work. Patient states that upon completion of shift, she was talking to some of her coworkers. Then she remembers waking up confused; she didn't know where she was and started crying. Patient states that she does not remember anything during or shortly after episode. She remembers feeling "funny" prior to the episode. She also reports blurry vision and feeling as if her head was about to explode. She insists that she was not having a headache. She denies dizziness, seeing black spots in her vision, and picking up unusual smells. The episode was witnessed by the patient's coworkers. As per , the episode lasted seconds. The patient sat upright in a daze before slumping over and losing consciousness. She was able to be aroused but remained in a daze. Coworkers denied any shaking, tongue biting during episode. Patient denies incontinence. Patient had, at least, three more episodes while in transit to hospital and one episode in ED. EMS also noted SVT , which converted without medical management. Orthostatic blood pressure in ED negative. Of note, patient was hospitalized at [facility] approximately 4 weeks ago. Patient reports not feeling well. She was found to have "plugged ears," which were cleaned. Patient felt worse after cleaning but was sent home. She reports an episode of fainting in her bathroom shortly after discharge. Patient returned to hospital where CT of head was performed. CT showed "an old, mini stroke." Patient was also found to have elevated blood pressure and cholesterol. Patient was hospitalized for total of 3-4 days. Patient was discharged with blood pressure and cholesterol medications. Patient was hospitalized again about 10 days ago. Patient reported feeling that her head was going to explode. When EMS arrived at home, patient felt better but insisted on EMS taking patient to the hospital. A CT of the head was performed with similar findings as previous CT. Patient's blood pressure was again found to be elevated. Patient was discharged from ED. Patient visited ED one more time for dark and bloody stool. Patient was told she was "fine" and discharged from ED. CBC/BMP: 01/23/17 0917 01/23/17 0917 Significant Findings Laboratory Tests Test 01/23/17 09:17 Eosinophils (%) (Auto) 4.2 % (0.0-4.0) Estimat Glomerular Filtration Rate 73 ML/MIN (>89) Imaging Last Impressions Myocardial Perfusion Scan Nuc Med 01/21/17 0000 Signed Impressions: Service Date/Time: January 12:49 - CONCLUSION: Multi-territory perfusion abnormalities with redistribution. RISK CATEGORY: High (>3%% Annual Mortality Rate) Inder Ambrocio MD Carotid Artery Ultrasound 01/20/17 0000 Signed Impressions: Service Date/Time: Friday, January 20, 2017 10:33 - CONCLUSION: No evidence of flow-limiting carotid stenosis. Inder Ambrocio MD Brain MRI 01/20/17 0000 Signed Impressions: Service Date/Time: Friday, January 20, 2017 20:09 - CONCLUSION: Focal encephalomalacia left frontal lobe similar to recent CT. No acute findings. No recent infarct. Solo Ramirez MD Head CT 9/5/17 1610 Signed Impressions: Service Date/Time: Thursday, January 19, 2017 19:35 - CONCLUSION: Focal encephalomalacia left frontal lobe measuring up to 2.7 cm, possibly from subacute or old infarct. No acute intracranial abnormality. Solo Ramirez MD Chest X-Ray 01/19/[id number] Signed Impressions: Service Date/Time: Thursday, January 19, 2017 16:14 - CONCLUSION: Mild left base atelectasis. Inder Medel MD Abdomen/Pelvis CT 01/19/[id number] Signed Impressions: Service Date/Time: Thursday, January 19, 2017 19:41 - CONCLUSION: 1. No acute findings. Appendix normal. No obstructive uropathy. Cholecystectomy. Solo Ramirez MD Lower Extremity Ultrasound 01/19/17 0000 Signed Impressions: Service Date/Time: Thursday, January 19, 2017 21:58 - CONCLUSION: Normal examination. Solo Ramirez MD PE at Discharge GENERAL: obese female in NAD with anxiety SKIN: Warm and dry, no lesions or rashes. Bilateral venous stasis on LEs below the knee. EYES: No scleral icterus. No injection or drainage. EOMI grossly normal. CARDIOVASCULAR: Regular rate and rhythm without murmurs. Normal peripheral perfusion grossly. RESPIRATORY: Breath sounds equal bilaterally. No accessory muscle use. No increased WOB. GASTROINTESTINAL: Abdomen soft, nontender. normal BS EXTREMITIES: No cyanosis, or edema. Ambulation/ full ROM not assessed NEUROLOGICAL: Grossly normal cranial nerves; grossly normal motor and sensory function peripherally Hospital Course Patient was admitted for syncope workup. Neurology was consulted. EEG was negative. Patient was started on Keppra, to be continued until instructed to stop by neurology. Nuclear stress test with multi-territory perfusion abnormalities with redistribution; high risk. Thus, cardiology was consulted and performed a cardiac catheterization with angiography, which showed nonobstructive coronary artery disease. Cardiology recommended aggressive medical management. Thus, patient was started on metoprolol, lisinopril, baby aspirin. Patient was already on high intensity statin, which she was instructed to continue. Patient was also noted to have prior history of DVTs and a CVA, for which lifelong anticoagulation was recommended. Started patient on anticoagulation with Xarelto and case management worked to get patient this medication after discharge. Physical therapy recommended walker with front wheels, which was also prescribed to patient upon discharge. Patient was anxious and tearful throughout admission. Pt Condition on Discharge: Good Discharge Disposition: Discharge Home Discharge Instructions DIET: Follow Instructions for: As Tolerated, No Restrictions Activities you can perform: Regular-No Restrictions Follow up Referrals: Cardiology - 2 Weeks Neurology - 2 Weeks PCP Follow-up - 1 Week New Orders: HOLTER MONITOR - 2 Weeks New Medications: Metoprolol Tartrate (Metoprolol Tartrate) 25 Mg Tab 25 MG PO BID, #60 TAB 0 Refills Walker with Front Wheels (Walker with Front Wheels) 1 Mis Mis EA .ROUTE DIRECTED, #1 0 Refills Aspirin (Aspirin Low Strength) 81 Mg Chew 81 MG CHEW DAILY, #30 EA Levetiracetam (Keppra) 500 Mg Tab 500 MG PO Q12HR, #60 TAB Lisinopril (Lisinopril) 10 Mg Tab 10 MG PO DAILY, #30 TAB Rivaroxaban (Xarelto) 20 Mg Tab 20 MG PO DAILY for 90 Days, TAB 4 Refills Continued Medications: Atorvastatin (Atorvastatin) 40 Mg Tab 40 MG PO HS for Cholesterol Management, #30 TAB 0 Refills (This prescription has been renewed) Montelukast (Montelukast) 10 Mg Tab 10 MG PO HS, #30 TAB 0 Refills [Allergy Medication] () Discontinued Medications: Aspirin (Adult Low Dose Aspirin EC) 81 Mg Tablet. [Cholesterol] () [Hypertension] () John Rm MD R2 Jan 25, 2017 15:02
== END 2017-01-23 13:59 | disposition home or self-care (01) | DRG 287 ==
LOC: NEDAMB 15:50 → NEDA 20:47 → NEPFCDU 22:46 → OBSVTOIN 01-21 17:24 → N05A 01-22 02:18
PROVIDERS: ADMIT Family Medicine; ATTEND Family Medicine
PROC: 4A023N7 Measurement of Cardiac Sampling and Pressure, Left Heart, Percutaneous Approach (ICD-10-PCS; principal; 2017-01-21)
PROC: B2111ZZ Fluoroscopy of Multiple Coronary Arteries using Low Osmolar Contrast (ICD-10-PCS; 2017-01-21)
PROC: B2151ZZ Fluoroscopy of Left Heart using Low Osmolar Contrast (ICD-10-PCS; 2017-01-21)
DX: I11.9 Hypertensive heart disease without heart failure (principal); G93.89 Other specified disorders of brain; Z68.41 Body mass index [BMI] 40.0-44.9, adult; I47.1 Supraventricular tachycardia; N39.0 Urinary tract infection, site not specified; R55 Syncope and collapse; I25.10 Atherosclerotic heart disease of native coronary artery without angina pectoris; I87.2 Venous insufficiency (chronic) (peripheral); D18.01 Hemangioma of skin and subcutaneous tissue; K59.00 Constipation, unspecified; E66.01 Morbid (severe) obesity due to excess calories; F41.9 Anxiety disorder, unspecified; Z86.718 Personal history of other venous thrombosis and embolism; Z86.73 Personal history of transient ischemic attack (TIA), and cerebral infarction without residual deficits; Z88.5 Allergy status to narcotic agent
CPT/HCPCS: 70450; 70551; 71010; 74177; 78452; 80048; 80053; 80061; 81001; 82550; 83690; 83735; 84443; 84484; 84702; 84703; 85025; 85610; 85730; 87086; 93005; 93017; 93306; 93458; 93880; 93970; 95819; 96361; 96365; 96372; 96375; A9502; C1769; C1893; G0378; J0696; J1644; J1650; J2060; J2250; J2785; J3010; J7030; Q9967

== ENCOUNTER 2017-07-01 10:24 | Emergency (ER) | payer BC, OTHER ==
[~2017-07-01] VITALS: Ht 185.4 cm; Wt 148.0 kg
[~2017-07-01 10:24] MED LIST changes: +ASPI81CH25 CHEW; +ATOR40TA16 PO; +LEVE500 PO; +LISI10TA3 PO; -LORTA5 PO; +METO25TA3 PO; +MONT10TA4 PO; +XARE20TA PO
[2017-07-01 10:34] VITALS: BP 138/61; PULSE 85; RESP 18; TEMP 98.1; O2SAT 100
[2017-07-01] MEDS ORDERED: ONDANSETRON HCL 4 MG/2 ML VIAL IV PUSH ONE (11:15)
[2017-07-01] MEDS ORDERED: SODIUM CHLORIDE 0.9% FLUSH 10 ML FLUSH IVF PRN (11:15)
[2017-07-01 11:27] LABS: AUTOMATED NEUTROPHIL # 4.4 TH/MM3 (1.8-7.7); BASOPHIL % 0.4 % (0.0-2.0); EOSINOPHIL # 0.2 TH/MM3 (0-0.4); EOSINOPHIL % 2.9 % (0.0-4.0); LYMPH % 24.7 % (9.0-44.0); LYMPHOCYTE # 1.7 TH/MM3 (1.0-4.8); MEAN CELL VOLUME 87.5 FL (80.0-100.0); MEAN CORPUSCULAR HEMOGLOBIN 29.2 PG (27.0-34.0); MEAN CORPUSCULAR HGB CONC 33.3 % (32.0-36.0); MEAN PLATELET VOLUME 8.2 FL (7.0-11.0); MONO % 6.9 % (0.0-8.0); MONOCYTE # 0.5 TH/MM3 (0-0.9); NEUT % 65.1 % (16.0-70.0); PLATELET COUNT 235 TH/MM3 (150-450); RED CELL DISTRIBUTION WIDTH 14.2 % (11.6-17.2); WHITE BLOOD COUNT 6.8 TH/MM3 (4.0-11.0)
--- NOTE | 2017-07-01 11:37 | RADRPT ---
EXAM DATE/TIME: 07/01/2017 11:20 [facility] COMPARISON: CT BRAIN W/O CONTRAST, January 19, 2017, 19:35. INDICATIONS : Multiple syncopal episodes this morning. RADIATION DOSE: 56.35 CTDIvol (mGy) MEDICAL HISTORY : Seizures. Stroke Deep venous thrombosis.Hypertension. SURGICAL HISTORY : None. ENCOUNTER: Initial ACUITY: 1 day PAIN SCALE: 0/10 LOCATION: cranial TECHNIQUE: Multiple contiguous axial images were obtained of the head. Using automated exposure control and adj ustment of the mA and/or kV according to patient size, radiation dose was kept as low as reasonably a chievable to obtain optimal diagnostic quality images. DICOM format image data is available electro nically for review and comparison. FINDINGS: CEREBRUM: Focal encephalomalacia characteristic of an old infarct is identified in the left frontal lobe. Cereb ral hemispheres are otherwise unremarkable. There is no evidence of acute infarct, hemorrhage, mass o r edema. POSTERIOR FOSSA: The cerebellum and brainstem are intact. The 4th ventricle is midline. The cerebellopontine angle i s unremarkable. EXTRACRANIAL: The visualized portion of the orbits is intact. SKULL: The calvaria is intact. No evidence of skull fracture. CONCLUSION: 1. Old left frontal lobe infarct. 2. No evidence of acute infarct, hemorrhage, mass or edema. Tra Henry MD on July 01, 2017 at 11:34 Board Certified Radiologist. This report was verified electronically.
[2017-07-01 11:42] VITALS: O2SAT 96
[2017-07-01 11:45] LABS: ALT (GPT) 17 U/L (10-53)
--- NOTE | 2017-07-01 11:47 | PD ---
HPI Chief Complaint: Syncope/Near-Syncope Time Seen by Provider: 11:03 Travel History International Travel<30 days: No Contact w/Intl Traveler<30days: No Traveled to known affect area: No History of Present Illness HPI 51-year-old female with PMH of anxiety, seizures, HTN, CVA, on Xarelto and aspirin presents to the ED via EMS after syncopal episode at work today. She states that she was feeling normally today. She was in the lounge then "woke up on the ground. This was witnessed by coworkers who lowered her to the ground. On presentation she endorses blurred vision for 3 days, intermittent left-sided chest pain accompanied by palpitations. Also endorses increased urinary frequency. Endorses swelling in her hands and lower extremities. She denies headache, dizziness, diaphoresis, cough, shortness of breath, decreased appetite, nausea, vomiting, dysuria, melena, hematochezia, back pain, weakness in the extremities. She states that she just established a primary care provider and has upcoming follow-up with multiple specialists including cardiology and neurology. At last visit she was prescribed a Holter monitor but has never followed up with that discharge plan. PFSH Past Medical History Hx Anticoagulant Therapy: Yes (ASPIRIN) Blood Disorders: No Anxiety: No Cancer: No Cardiovascular Problems: No Cerebrovascular Accident: Yes (PER PATIENT, SHE HAD A STROKE) Diabetes: No Diminished Hearing: No Deep Vein Thrombosis: Yes Endocrine: No Genitourinary: No Hepatitis: No Hiatal Hernia: No Hypertension: Yes Immune Disorder: No Musculoskeletal: No Neurologic: No Psychiatric: No Reproductive: No Respiratory: No Immunizations Current: Yes Thyroid Disease: No ?: Not Menopausal: Yes : 3 Para: 3 Past Surgical History Abdominal Surgery: No AICD: No Cardiac Surgery: No Cholecystectomy: Yes Endocrine Surgery: No Gynecologic Surgery: No Joint Replacement: No Pacemaker: No Thoracic Surgery: No Other Surgery: Yes (BILAT CARPAL TUNNEL SURG) Social History Alcohol Use: No Tobacco Use: No Substance Use: No Allergies-Medications (Allergen,Severity, Reaction): Coded Allergies: codeine (Unverified Allergy, Severe, 03/15/17) Reported Meds & Prescriptions Reported Meds & Active Scripts Active Metoprolol Tartrate 25 Mg Tab 25 Mg PO BID Keppra (Levetiracetam) 500 Mg Tab 500 Mg PO Q12HR Aspirin Low Strength (Aspirin) 81 Mg Chew 81 Mg CHEW DAILY Lisinopril 10 Mg Tab 10 Mg PO DAILY Xarelto (Rivaroxaban) 20 Mg Tab 20 Mg PO DAILY 90 Days Atorvastatin (Atorvastatin Calcium) 40 Mg Tab 40 Mg PO HS Reported Montelukast (Montelukast Sodium) 10 Mg Tab 10 Mg PO HS Review of Systems Except as stated in HPI: all other systems reviewed are Neg Physical Exam Narrative GENERAL: Well-nourished, well-developed alert and oriented white female in no acute distress. SKIN: Warm and dry. Venous stasis dermatitis in both lower extremities. HEAD: Normocephalic. Atraumatic. EYES: No scleral icterus. No injection or drainage. PERRLA. EOMI. ENT: Pearly marshall tympanic membranes bilaterally. Nasal mucosa is moist. Oropharynx without erythema, edema or exudate. NECK: Supple, trachea midline. No JVD or lymphadenopathy. CARDIOVASCULAR: Regular rate and rhythm without murmurs, gallops, or rubs. CHEST: Nontender throughout without deformity or crepitus. No retractions or use of accessory muscles. RESPIRATORY: Breath sounds clear and equal bilaterally. GASTROINTESTINAL: Abdomen soft, non-tender, nondistended. + Bowel sounds MUSCULOSKELETAL: No cyanosis, or edema. Homans sign negative in the bilateral lower extremities. Moves extremities spontaneously. NEUROLOGICAL: Awake and alert. Cranial nerves II through XII intact. Motor and sensory grossly within normal limits. Five out of 5 muscle strength in all muscle groups. Normal speech. BACK: Nontender without obvious deformity. No CVA tenderness. Data Data Last Documented VS Vital Signs Date Time Temp Pulse Resp B/P (MAP) Pulse Ox O2 Delivery O2 Flow Rate FiO2 07/01/17 11:42 96 Room Air 07/01/17 10:34 98.1 85 18 138/61 (86) Orders Orders Electrocardiogram (07/01/17 11:03) Complete Blood Count With Diff (07/01/17 11:03) Comprehensive Metabolic Panel (07/01/17 11:03) Ckmb (Isoenzyme) Profile (07/01/17 11:03) Troponin I (07/01/17 11:03) Act Partial Throm Time (Ptt) (07/01/17 11:03) Prothrombin Time / Inr (Pt) (07/01/17 11:03) Urinalysis - C+S If Indicated (07/01/17 11:03) Chest, Single Ap (07/01/17 11:03) Ct Brain W/O Iv Contrast(Rout) (07/01/17 11:03) Ecg Monitoring (07/01/17 11:03) Iv Access Insert/Monitor (07/01/17 11:03) Oximetry (07/01/17 11:03) Sodium Chloride 0.9% Flush (Ns Flush) (07/01/17 11:15) Ondansetron Inj (Zofran Inj) (07/01/17 11:15) CKMB (07/01/17 11:10) CKMB% (07/01/17 11:10) Sodium Chlor 0.9% 1000 Ml Inj (Ns 1000 M (07/01/17 13:00) Ed Discharge Order (07/01/17 14:22) Levetiracetam (Keppra) (07/01/17 14:30) Labs Laboratory Tests Test 07/01/17 11:10 07/01/17 12:57 White Blood Count 6.8 TH/MM3 Red Blood Count 4.80 MIL/MM3 Hemoglobin 14.0 GM/DL Hematocrit 42.0 % Mean Corpuscular Volume 87.5 FL Mean Corpuscular Hemoglobin 29.2 PG Mean Corpuscular Hemoglobin Concent 33.3 % Red Cell Distribution Width 14.2 % Platelet Count 235 TH/MM3 Mean Platelet Volume 8.2 FL Neutrophils (%) (Auto) 65.1 % Lymphocytes (%) (Auto) 24.7 % Monocytes (%) (Auto) 6.9 % Eosinophils (%) (Auto) 2.9 % Basophils (%) (Auto) 0.4 % Neutrophils # (Auto) 4.4 TH/MM3 Lymphocytes # (Auto) 1.7 TH/MM3 Monocytes # (Auto) 0.5 TH/MM3 Eosinophils # (Auto) 0.2 TH/MM3 Basophils # (Auto) 0.0 TH/MM3 CBC Comment DIFF FINAL Differential Comment Prothrombin Time 10.5 SEC Prothromb Time International Ratio 1.0 RATIO Activated Partial Thromboplast Time 33.3 SEC Blood Urea Nitrogen 17 MG/DL Creatinine 0.88 MG/DL Random Glucose 81 MG/DL Total Protein 7.6 GM/DL Albumin 3.5 GM/DL Calcium Level 8.8 MG/DL Alkaline Phosphatase 102 U/L Aspartate Amino Transf (AST/SGOT) 26 U/L Alanine Aminotransferase (ALT/SGPT) 17 U/L Total Bilirubin 0.6 MG/DL Sodium Level 140 MEQ/L Potassium Level 4.2 MEQ/L Chloride Level 106 MEQ/L Carbon Dioxide Level 25.9 MEQ/L Anion Gap 8 MEQ/L Estimat Glomerular Filtration Rate 67 ML/MIN Total Creatine Kinase 131 U/L Creatine Kinase MB 1.3 NG/ML Troponin I LESS THAN 0.02 NG/ML Urine Color YELLOW Urine Turbidity CLEAR Urine pH 5.5 Urine Specific Henry 1.022 Urine Protein NEG mg/dL Urine Glucose (UA) NEG mg/dL Urine Ketones NEG mg/dL Urine Occult Blood TRACE Urine Nitrite NEG Urine Bilirubin NEG Urine Urobilinogen LESS THAN 2.0 MG/DL Urine Leukocyte Esterase SMALL Urine RBC 1 /hpf Urine WBC 1 /hpf Urine Squamous Epithelial Cells 3 /hpf Urine Bacteria OCC /hpf Microscopic Urinalysis Comment CULT NOT INDICATED MDM Medical Decision Making Medical Screen Exam Complete: Yes Emergency Medical Condition: Yes Differential Diagnosis hypotension versus anemia versus hypoglycemia versus metabolic derangement versus vasovagal syncope versus dysrhythmia versus ACS versus TIA versus other Narrative Course 51-year-old female with PMH of anxiety, seizures, HTN, CVA, on Xarelto and aspirin presents to the ED via EMS after syncopal episode at work today. Patient was in the lounge at work then "woke up on the ground." She wa lowered to the ground by coworkers. On presentation she endorses blurred vision for 3 days, intermittent left-sided chest pain accompanied by palpitations,increased urinary frequency, swelling in her hands and lower extremities. Patient's afebrile, pulse 85, 100% O2 sats, BP 138/61 on presentation. Physical exam is reassuring. IV was established. Patient was administered 4 mg Zofran, 1 L normal saline. EKG: Rate 79, sinus rhythm. MN interval 153, QRS 92, QTC 399 ms. Normal axis. No ST changes. Reviewed by Dr. Hoover. CARDIAC ENZYMES: Negative 1 CXR: no acute disease. CT BRAIN: old left frontal lobe infarct, no evidence of acute infarct, hemorrhage, mass or edema per radiology read. CBC: unremarkable. INR: 1.0. CMP: no concerning abnormalities. UA: no culture indicated Per chart review the patient underwent a syncope workup January 23, 2017. EF 55% by echo, heart cath showed nonobstructive CAD, MRI with left frontal encephalomalacia, carotid US negative, EEG negative. Patient was discharged with order for Holter monitoring. She was noncompliant 2/2 insurance issues. The patient states that she just established a PCP and has upcoming follow-up with multiple specialists including cardiology and neurology. Dr. Hoover spoke with Dr. Salinas, the patients PCP. They feel the patient is stable for outpatient evaluation as planned. The patient is stable and discharged home. Diagnosis Primary Impression: Syncopal episodes Qualified Codes: R55 - Syncope and collapse Additional Impressions: Seizure Noncompliance Referrals: [facility] Tender Neurologist Primary Care Physician Patient Instructions: General Instructions, Near Syncope (ED), Syncope (ED) Additional Instructions: Rest, hydrate. Resume normal, gentle activities as tolerated. Resume at home medications as prescribed. Follow-up with the neurologist, supervisor lamp shades and primary care as planned. Return to the ED for any urgent or emergent medical condition. Disposition: 01 DISCHARGE HOME Condition: Stable Ludivina Montilla Jul 01, 2017 11:47
[2017-07-01 11:50] LABS: ALBUMIN 3.5 GM/DL (3.4-5.0); ALKALINE PHOSPHATASE 102 U/L (45-117); AST (GOT) 26 U/L (15-37); BICARBONATE 25.9 MEQ/L (21.0-32.0); BLOOD UREA NITROGEN 17 MG/DL (7-18); CALCIUM 8.8 MG/DL (8.5-10.1); CHLORIDE 106 MEQ/L (98-107); CREATININE 0.88 MG/DL (0.50-1.00); GLOMERULAR FILTRATION RATE 67 ML/MIN (>89); GLUCOSE,RANDOM 81 MG/DL (74-106); SODIUM (NA) 140 MEQ/L (136-145); TOTAL BILIRUBIN ADULT 0.6 MG/DL (0.2-1.0); TOTAL PROTEIN 7.6 GM/DL (6.4-8.2); TROPONIN I LESS THAN 0.02 NG/ML (0.02-0.05)
[2017-07-01 11:54] LABS: PROTHROMBIN TIME - PATIENT 10.5 SEC (9.8-11.6)
--- NOTE | 2017-07-01 12:14 | RADRPT ---
EXAM DATE/TIME: 07/01/2017 12:03 [facility] COMPARISON: CHEST SINGLE AP, January 19, 2017, 16:14. INDICATIONS : Syncope. MEDICAL HISTORY : Seizures. Stroke. Deep venous thrombosis.Hypertension. SURGICAL HISTORY : None. ENCOUNTER: Initial ACUITY: 1 day PAIN SCORE: 0/10 LOCATION: Bilateral chest FINDINGS: A single view of the chest demonstrates the lungs to be symmetrically aerated without evidence of mas s, infiltrate or effusion. The cardiomediastinal contours are unremarkable. Osseous structures are intact. CONCLUSION: No acute disease. Inder Ambrocio MD on July 01, 2017 at 12:12 Board Certified Radiologist. This report was verified electronically.
[2017-07-01] MEDS ORDERED: SODIUM CHLOR 0.9% 1000 ML INJ 1,000 ML IV ONE (13:00)
[2017-07-01 13:32] LABS: BACTERIA, URINE OCC /hpf; BILIRUBIN, URINE NEG (NEG); BLOOD, URINE TRACE (NEG); GLUCOSE,URINE NEG (NEG); KETONE, URINE NEG (NEG); NITRITE,URINE NEG (NEG); PH, URINE 5.5 (5.0-8.5); SQUAMOUS EPITHELIAL CELL URINE 3 /hpf (0-5); URINE COLOR YELLOW (YELLW/STRAW); URINE LEUKOCYTE ESTERASE SMALL (NEG)
--- NOTE | 2017-07-01 13:59 | PD ---
Data Data Last Documented VS Vital Signs Date Time Temp Pulse Resp B/P (MAP) Pulse Ox O2 Delivery O2 Flow Rate FiO2 07/01/17 11:42 96 Room Air 07/01/17 10:34 98.1 85 18 138/61 (86) Orders Orders Electrocardiogram (07/01/17 11:03) Complete Blood Count With Diff (07/01/17 11:03) Comprehensive Metabolic Panel (07/01/17 11:03) Ckmb (Isoenzyme) Profile (07/01/17 11:03) Troponin I (07/01/17 11:03) Act Partial Throm Time (Ptt) (07/01/17 11:03) Prothrombin Time / Inr (Pt) (07/01/17 11:03) Urinalysis - C+S If Indicated (07/01/17 11:03) Chest, Single Ap (07/01/17 11:03) Ct Brain W/O Iv Contrast(Rout) (07/01/17 11:03) Ecg Monitoring (07/01/17 11:03) Iv Access Insert/Monitor (07/01/17 11:03) Oximetry (07/01/17 11:03) Sodium Chloride 0.9% Flush (Ns Flush) (07/01/17 11:15) Ondansetron Inj (Zofran Inj) (07/01/17 11:15) CKMB (07/01/17 11:10) CKMB% (07/01/17 11:10) Sodium Chlor 0.9% 1000 Ml Inj (Ns 1000 M (07/01/17 13:00) Ed Discharge Order (07/01/17 14:22) Levetiracetam (Keppra) (07/01/17 14:30) Labs Laboratory Tests Test 07/01/17 11:10 07/01/17 12:57 White Blood Count 6.8 TH/MM3 Red Blood Count 4.80 MIL/MM3 Hemoglobin 14.0 GM/DL Hematocrit 42.0 % Mean Corpuscular Volume 87.5 FL Mean Corpuscular Hemoglobin 29.2 PG Mean Corpuscular Hemoglobin Concent 33.3 % Red Cell Distribution Width 14.2 % Platelet Count 235 TH/MM3 Mean Platelet Volume 8.2 FL Neutrophils (%) (Auto) 65.1 % Lymphocytes (%) (Auto) 24.7 % Monocytes (%) (Auto) 6.9 % Eosinophils (%) (Auto) 2.9 % Basophils (%) (Auto) 0.4 % Neutrophils # (Auto) 4.4 TH/MM3 Lymphocytes # (Auto) 1.7 TH/MM3 Monocytes # (Auto) 0.5 TH/MM3 Eosinophils # (Auto) 0.2 TH/MM3 Basophils # (Auto) 0.0 TH/MM3 CBC Comment DIFF FINAL Differential Comment Prothrombin Time 10.5 SEC Prothromb Time International Ratio 1.0 RATIO Activated Partial Thromboplast Time 33.3 SEC Blood Urea Nitrogen 17 MG/DL Creatinine 0.88 MG/DL Random Glucose 81 MG/DL Total Protein 7.6 GM/DL Albumin 3.5 GM/DL Calcium Level 8.8 MG/DL Alkaline Phosphatase 102 U/L Aspartate Amino Transf (AST/SGOT) 26 U/L Alanine Aminotransferase (ALT/SGPT) 17 U/L Total Bilirubin 0.6 MG/DL Sodium Level 140 MEQ/L Potassium Level 4.2 MEQ/L Chloride Level 106 MEQ/L Carbon Dioxide Level 25.9 MEQ/L Anion Gap 8 MEQ/L Estimat Glomerular Filtration Rate 67 ML/MIN Total Creatine Kinase 131 U/L Creatine Kinase MB 1.3 NG/ML Troponin I LESS THAN 0.02 NG/ML Urine Color YELLOW Urine Turbidity CLEAR Urine pH 5.5 Urine Specific [place] 1.022 Urine Protein NEG mg/dL Urine Glucose (UA) NEG mg/dL Urine Ketones NEG mg/dL Urine Occult Blood TRACE Urine Nitrite NEG Urine Bilirubin NEG Urine Urobilinogen LESS THAN 2.0 MG/DL Urine Leukocyte Esterase SMALL Urine RBC 1 /hpf Urine WBC 1 /hpf Urine Squamous Epithelial Cells 3 /hpf Urine Bacteria OCC /hpf Microscopic Urinalysis Comment CULT NOT INDICATED [facility] Medical Record Reviewed: Yes Supervised Visit with IMAN: Yes Narrative Course CBC & BMP Diagram 07/01/17 11:10 Total Protein 7.6, Albumin 3.5, Calcium Level 8.8, Alkaline Phosphatase 102, Aspartate Amino Transf (AST/SGOT) 26, Alanine Aminotransferase (ALT/SGPT) 17, Total Bilirubin 0.6 EKG shows no preexcitation/arrhythmogenic morphology or ischemic injury pattern Case was discussed with Dr. Salinas in some detail. The patient has neurology and cardiology outpatient follow-up. This has been happening in the past. She does not drive. She reports noncompliance with Keppra intermittently and based on the discussion with EMS was concerned she might have been experiencing Seizures. We Discussed the Necessity of Strict Antiepileptic Compliance the Patient Verbalized Understanding. The Was Present As Well. Please refer to the PA documentation. I Evaluated the Patient and Examined the Patient. Diagnosis Primary Impression: Syncopal episodes Qualified Codes: R55 - Syncope and collapse Additional Impressions: Seizure Noncompliance Patient Instructions: General Instructions, Syncope (ED), Near Syncope (ED) Additional Instruction: Rest, hydrate Return to normal, gentle activities as tolerated. Resume at home medicines as previously prescribed. Follow-up with the neurologist and anesthesiology physician as planned. Return to the ED for worsening symptoms or any urgent or emergent medical condition. Disposition: 01 DISCHARGE HOME Condition: Stable Jamal Hoover MD Jul 01, 2017 13:59
[2017-07-01] MEDS ORDERED: levETIRAcetam 500 MG TAB PO ONE (14:30)
--- NOTE | 2017-07-01 14:45 | EKG ---
Date Performed: 07/01/2017 Time Performed: 10:31:53 PTAGE: 51 years EKG: Sinus rhythm NORMAL ECG PREVIOUS TRACING : 03/15/2017 20.10 Since the prior tracing, there has been no significant batista DOCTOR: Sagar Barakat Interpretating Date/Time 07/01/2017 14:37:33
== END 2017-07-01 16:04 | disposition home or self-care (01) ==
LOC: NEPE 10:24
DX: R55 Syncope and collapse (principal); R56.9 Unspecified convulsions; I10 Essential (primary) hypertension; Z91.14 Patient's other noncompliance with medication regimen; Z91.19 Patient's noncompliance with other medical treatment and regimen; Z86.73 Personal history of transient ischemic attack (TIA), and cerebral infarction without residual deficits; Z86.718 Personal history of other venous thrombosis and embolism; Z79.01 Long term (current) use of anticoagulants; Z79.82 Long term (current) use of aspirin
CPT/HCPCS: 70450; 71045; 80053; 81001; 82550; 82552; 84484; 85025; 85610; 85730; 93005; 96361; 96374; 99284; J2405; J7030

== ENCOUNTER 2017-07-14 06:20 | Emergency (ER) | payer BC ==
[~2017-07-14] VITALS: Ht 185.4 cm; Wt 150.0 kg
[2017-07-14 06:24] VITALS: BP 158/82; PULSE 84; RESP 18; TEMP 98; O2SAT 97
--- NOTE | 2017-07-14 06:49 | PD ---
HPI . Laceration/skin injury Chief Complaint: Laceration/Skin Injury Time Seen by Provider: 06:35 Travel History International Travel<30 days: No Contact w/Intl Traveler<30days: No Traveled to known affect area: No History of Present Illness HPI 51-year-old female was using a slicer yesterday evening approximately 5 PM, and avulses the lateral aspect of her right fourth finger distally. Patient takes Xarelto, and has had persistent mild oozing/bleeding throughout the night. Patient presents with a paper towel dressing, states that she cleansed her finger last night after the avulsion/laceration happened. Patient's tetanus is up-to-date [facility] Past Medical History Narrative Medical Past medical history reviewed Hx Anticoagulant Therapy: Yes (ASPIRIN) Blood Disorders: No Anxiety: No Cancer: No Cardiovascular Problems: No Cerebrovascular Accident: Yes (PER PATIENT, SHE HAD A STROKE) Diabetes: No Diminished Hearing: No Deep Vein Thrombosis: Yes Endocrine: No Genitourinary: No Hepatitis: No Hiatal Hernia: No Hypertension: Yes Immune Disorder: No Musculoskeletal: No Neurologic: No Psychiatric: No Reproductive: No Respiratory: No Immunizations Current: Yes Thyroid Disease: No Tetanus Vaccination: < 5 Years Influenza Vaccination: No ?: Not LMP: menapause Menopausal: Yes : 3 Para: 3 Past Surgical History Abdominal Surgery: No AICD: No Cardiac Surgery: No Cholecystectomy: Yes Endocrine Surgery: No Gynecologic Surgery: No Joint Replacement: No Pacemaker: No Thoracic Surgery: No Other Surgery: Yes (BILAT CARPAL TUNNEL SURG) Social History Alcohol Use: No Tobacco Use: No Substance Use: No Allergies-Medications (Allergen,Severity, Reaction): Coded Allergies: No Known Allergies (Unverified , 07/14/17) Reported Meds & Prescriptions Reported Meds & Active Scripts Active Metoprolol Tartrate 25 Mg Tab 25 Mg PO BID Keppra (Levetiracetam) 500 Mg Tab 500 Mg PO Q12HR Aspirin Low Strength (Aspirin) 81 Mg Chew 81 Mg CHEW DAILY Lisinopril 10 Mg Tab 10 Mg PO DAILY Xarelto (Rivaroxaban) 20 Mg Tab 20 Mg PO DAILY 90 Days Atorvastatin (Atorvastatin Calcium) 40 Mg Tab 40 Mg PO HS Reported Montelukast (Montelukast Sodium) 10 Mg Tab 10 Mg PO HS Narrative Medication Allergies and medications reviewed Review of Systems Except as stated in HPI: all other systems reviewed are Neg General / Constitutional: No: Fever Eyes: No: Visual changes HENT: No: Headaches Cardiovascular: No: Chest Pain or Discomfort Respiratory: No: Shortness of Breath Gastrointestinal: No: Abdominal Pain Genitourinary: No: Dysuria Musculoskeletal: No: Pain Skin: No Rash Neurologic: No: Weakness Psychiatric: No: Depression Endocrine: No: Polydipsia Hematologic/Lymphatic: No: Easy Bruising Physical Exam Narrative GENERAL: Awake alert oriented 3 no acute distress SKIN: Warm and dry. HEAD: Atraumatic. Normocephalic. EYES: Pupils equal and round. No scleral icterus. No injection or drainage. ENT: No nasal bleeding or discharge. Mucous membranes pink and moist. NECK: Trachea midline. No JVD. CARDIOVASCULAR: Regular rate and rhythm. RESPIRATORY: No accessory muscle use. Clear to auscultation. Breath sounds equal bilaterally. GASTROINTESTINAL: Abdomen soft, non-tender, nondistended. Hepatic and splenic margins not palpable. MUSCULOSKELETAL: Right lateral distal forefinger with a 0.5 cm ovoid superficial skin evulsion. Otherwise neurovascularly intact NEUROLOGICAL: Awake and alert. No obvious cranial nerve deficits. Motor grossly within normal limits. Five out of 5 muscle strength in the arms and legs. Normal speech. PSYCHIATRIC: Appropriate mood and affect; insight and judgment normal. Data Data Last Documented VS Vital Signs Date Time Temp Pulse Resp B/P (MAP) Pulse Ox O2 Delivery O2 Flow Rate FiO2 07/14/17 06:24 98.0 84 18 158/82 (107) 97 MDM Medical Decision Making Medical Screen Exam Complete: Yes Emergency Medical Condition: Yes Medical Record Reviewed: Yes Differential Diagnosis Skin avulsion Narrative Course Wound care performed by nursing staff with good hemostasis, adequate cleansing, bacitracin dressing applied. Diagnosis Primary Impression: Avulsion of skin of finger Qualified Codes: S61.209A - Unspecified open wound of unspecified finger without damage to nail, initial encounter Patient Instructions: General Instructions, Skin Avulsion (ED) Additional Instructions: Bacitracin dressing change as shown twice daily. Wash thoroughly with soap and water between dressing changes. Keep clean and dry. Follow-up with your doctor. Return for worsening Disposition: 01 DISCHARGE HOME Condition: Stable Maco Olvera MD Jul 14, 2017 06:49
== END 2017-07-14 07:17 | disposition home or self-care (01) ==
LOC: NEPE 06:20
DX: S61.204A Unspecified open wound of right ring finger without damage to nail, initial encounter (principal); I10 Essential (primary) hypertension; W29.0XXA Contact with powered kitchen appliance, initial encounter; Z79.01 Long term (current) use of anticoagulants
CPT/HCPCS: 99282

== ENCOUNTER 2017-09-08 12:36 | Emergency (ER) | payer BC ==
[~2017-09-08] VITALS: Ht 185.4 cm; Wt 150.0 kg
[2017-09-08 12:41] VITALS: PULSE 87; RESP 22; O2SAT 98
[2017-09-08 12:49] VITALS: BP 119/51; PULSE 80; RESP 23; O2SAT 98
[2017-09-08 13:00] LABS: BASOPHIL # 0.1 TH/MM3 (0-0.2); BASOPHIL % 0.7 % (0.0-2.0); EOSINOPHIL # 0.3 TH/MM3 (0-0.4); EOSINOPHIL % 3.4 % (0.0-4.0); HEMATOCRIT 40.1 % (35.0-46.0); HEMOGLOBIN 13.2 GM/DL (11.6-15.3); LYMPH % 24.6 % (9.0-44.0); LYMPHOCYTE # 1.9 TH/MM3 (1.0-4.8); MEAN CELL VOLUME 87.4 FL (80.0-100.0); MEAN CORPUSCULAR HEMOGLOBIN 28.8 PG (27.0-34.0); MEAN CORPUSCULAR HGB CONC 32.9 % (32.0-36.0); MONO % 7.1 % (0.0-8.0); MONOCYTE # 0.6 TH/MM3 (0-0.9); NEUT % 64.2 % (16.0-70.0); PLATELET COUNT 251 TH/MM3 (150-450); RED BLOOD COUNT 4.59 MIL/MM3 (4.00-5.30); RED CELL DISTRIBUTION WIDTH 14.8 % (11.6-17.2); WHITE BLOOD COUNT 7.8 TH/MM3 (4.0-11.0)
[2017-09-08] MEDS ORDERED: XARE20TA PO (13:05)
[2017-09-08 13:08] LABS: INTERNATIONAL NORMALIZED RATIO 1.1 RATIO
[2017-09-08 13:15] VITALS: BP_SYST 118; BP_SYST 137; BP_DIAS 57; BP_DIAS 58; RESP 20
[2017-09-08 13:19] LABS: ALBUMIN 3.5 GM/DL (3.4-5.0); ALT (GPT) 18 U/L (10-53); AST (GOT) 14 U/L (15-37); BICARBONATE 25.8 MEQ/L (21.0-32.0); BLOOD UREA NITROGEN 13 MG/DL (7-18); CALCIUM 8.6 MG/DL (8.5-10.1); CHLORIDE 110 MEQ/L (98-107); CREATININE 0.85 MG/DL (0.50-1.00); GLOMERULAR FILTRATION RATE 70 ML/MIN (>89); GLUCOSE,RANDOM 83 MG/DL (74-106); MAGNESIUM 2.1 MG/DL (1.5-2.5); SODIUM (NA) 143 MEQ/L (136-145)
[2017-09-08 13:30] LABS: ALKALINE PHOSPHATASE 103 U/L (45-117); TOTAL BILIRUBIN ADULT 0.5 MG/DL (0.2-1.0); TOTAL PROTEIN 7.3 GM/DL (6.4-8.2)
--- NOTE | 2017-09-08 13:33 | PD ---
HPI Chief Complaint: Seizure Time Seen by Provider: 12:40 Travel History International Travel<30 days: No Contact w/Intl Traveler<30days: No Traveled to known affect area: No History of Present Illness HPI 52-year-old female that presents to the ED via ambulance for evaluation of possible seizure. Patient came here by ambulance after apparently she had supposedly 2 witnessed seizures. Patient has a history of syncopal episodes and has been here evaluated multiple times and had a very thorough workup in 2016 with cardiac cath and given neurology consultation. The time that was unclear as to what she was having and she had an EEG as well as heart cath that was essentially negative so they kept her on Keppra and Xarelto she has a history of DVTs. She states that she actually has an appointment in September 20 with a neurologist and then the following week with a communications equipment installer. Per patient she is hoping to be able to make this appointment so she can get more of a definitive answer as to what is going on with her. Per patient she did not want it to calm but because he has been at work they called the ambulance. Per patient she is an episode like this recently and did not come because she has had multiple workups that have been negative. Per patient she is compliant with her medications. Per patient before she had this episode she felt some dizziness and some chest discomfort. After that she does not remember what happened. Per report I was given by ambulance she allegedly had 2 seizure-like events. She was back to baseline when ambulance showed up has been back to baseline since. She herself does not want to be here. She cannot really tell me who her communications equipment installer or her neurologist is. Denies any pain at this time. No other medical issues. No allergies to medication. PFSH Past Medical History Hx Anticoagulant Therapy: Yes (ASPIRIN) Blood Disorders: No Anxiety: No Cancer: No Cardiovascular Problems: No Cerebrovascular Accident: Yes (PER PATIENT, SHE HAD A STROKE) Diabetes: No Diminished Hearing: No Deep Vein Thrombosis: Yes Endocrine: No Genitourinary: No Hepatitis: No Hiatal Hernia: No Hypertension: Yes Immune Disorder: No Musculoskeletal: No Neurologic: No Psychiatric: No Reproductive: No Respiratory: No Immunizations Current: Yes Thyroid Disease: No ?: Not Menopausal: Yes : 3 Para: 3 Past Surgical History Abdominal Surgery: No AICD: No Cardiac Surgery: No Cholecystectomy: Yes Endocrine Surgery: No Gynecologic Surgery: No Joint Replacement: No Pacemaker: No Thoracic Surgery: No Other Surgery: Yes (BILAT CARPAL TUNNEL SURG) Social History Alcohol Use: No Tobacco Use: No Substance Use: No Allergies-Medications (Allergen,Severity, Reaction): Coded Allergies: No Known Allergies (Unverified , 09/08/17) Reported Meds & Prescriptions Reported Meds & Active Scripts Active Metoprolol Tartrate 25 Mg Tab 25 Mg PO BID Keppra (Levetiracetam) 500 Mg Tab 500 Mg PO Q12HR Aspirin Low Strength (Aspirin) 81 Mg Chew 81 Mg CHEW DAILY Lisinopril 10 Mg Tab 10 Mg PO DAILY Atorvastatin (Atorvastatin Calcium) 40 Mg Tab 40 Mg PO HS Reported Xarelto (Rivaroxaban) 20 Mg Tab 20 Mg PO DAILY Review of Systems Except as stated in HPI: all other systems reviewed are Neg Physical Exam Narrative GENERAL: SKIN: Warm and dry. HEAD: Atraumatic. Normocephalic. EYES: Pupils equal and round. No scleral icterus. No injection or drainage. ENT: No nasal bleeding or discharge. Mucous membranes pink and moist. Tongue is midline. No uvula deviation. NECK: Trachea midline. No JVD. CARDIOVASCULAR: Regular rate and rhythm. No murmurs, S3, S4. RESPIRATORY: No accessory muscle use. Clear to auscultation. Breath sounds equal bilaterally. GASTROINTESTINAL: Abdomen soft, non-tender, nondistended. Hepatic and splenic margins not palpable. MUSCULOSKELETAL: Extremities without clubbing, cyanosis, or edema. No obvious deformities. Full range of motion of the upper and lower extremities bilaterally. 2+ pulses bilaterally. NEUROLOGICAL: Awake and alert. No obvious cranial nerve deficits. Motor grossly within normal limits. Five out of 5 muscle strength in the arms and legs. Normal speech. PSYCHIATRIC: Appropriate mood and affect; insight and judgment normal. Data Data Last Documented VS Vital Signs Date Time Temp Pulse Resp B/P (MAP) Pulse Ox O2 Delivery O2 Flow Rate FiO2 09/08/17 15:04 77 20 130/61 (84) 96 09/08/17 12:49 Room Air Orders Orders Electrocardiogram (09/08/17 12:45) Complete Blood Count With Diff (09/08/17 12:45) Comprehensive Metabolic Panel (09/08/17 12:45) Prothrombin Time / Inr (Pt) (09/08/17 12:45) Act Partial Throm Time (Ptt) (09/08/17 12:45) Urinalysis - C+S If Indicated (09/08/17 12:45) Magnesium (Mg) (09/08/17 12:45) Thyroid Stimulating Hormone (09/08/17 12:45) Ct Brain W/O Iv Contrast(Rout) (09/08/17 12:45) Iv Access Insert/Monitor (09/08/17 12:45) Ecg Monitoring (09/08/17 12:45) Oximetry (09/08/17 12:45) Orthostatic Vital Signs (09/08/17 12:45) Levetiracetam (09/08/17 13:07) Troponin I (09/08/17 13:31) Ckmb (Isoenzyme) Profile (09/08/17 13:31) Ed Discharge Order (09/08/17 15:33) Labs Laboratory Tests Test 09/08/17 12:50 09/08/17 13:25 09/08/17 14:20 White Blood Count 7.8 TH/MM3 Red Blood Count 4.59 MIL/MM3 Hemoglobin 13.2 GM/DL Hematocrit 40.1 % Mean Corpuscular Volume 87.4 FL Mean Corpuscular Hemoglobin 28.8 PG Mean Corpuscular Hemoglobin Concent 32.9 % Red Cell Distribution Width 14.8 % Platelet Count 251 TH/MM3 Mean Platelet Volume 8.0 FL Neutrophils (%) (Auto) 64.2 % Lymphocytes (%) (Auto) 24.6 % Monocytes (%) (Auto) 7.1 % Eosinophils (%) (Auto) 3.4 % Basophils (%) (Auto) 0.7 % Neutrophils # (Auto) 5.0 TH/MM3 Lymphocytes # (Auto) 1.9 TH/MM3 Monocytes # (Auto) 0.6 TH/MM3 Eosinophils # (Auto) 0.3 TH/MM3 Basophils # (Auto) 0.1 TH/MM3 CBC Comment DIFF FINAL Differential Comment Prothrombin Time 11.0 SEC Prothromb Time International Ratio 1.1 RATIO Activated Partial Thromboplast Time 35.4 SEC Blood Urea Nitrogen 13 MG/DL Creatinine 0.85 MG/DL Random Glucose 83 MG/DL Total Protein 7.3 GM/DL Albumin 3.5 GM/DL Calcium Level 8.6 MG/DL Magnesium Level 2.1 MG/DL Alkaline Phosphatase 103 U/L Aspartate Amino Transf (AST/SGOT) 14 U/L Alanine Aminotransferase (ALT/SGPT) 18 U/L Total Bilirubin 0.5 MG/DL Sodium Level 143 MEQ/L Potassium Level 4.2 MEQ/L Chloride Level 110 MEQ/L Carbon Dioxide Level 25.8 MEQ/L Anion Gap 7 MEQ/L Estimat Glomerular Filtration Rate 70 ML/MIN Total Creatine Kinase 86 U/L Troponin I LESS THAN 0.02 NG/ML Thyroid Stimulating Hormone 3rd Gen 1.690 uIU/ML Urine Color YELLOW Urine Turbidity HAZY Urine pH 5.5 Urine Specific [place] 1.022 Urine Protein NEG mg/dL Urine Glucose (UA) NEG mg/dL Urine Ketones NEG mg/dL Urine Occult Blood TRACE Urine Nitrite NEG Urine Bilirubin NEG Urine Urobilinogen LESS THAN 2.0 MG/DL Urine Leukocyte Esterase SMALL Urine RBC 4 /hpf Urine WBC 2 /hpf Urine Squamous Epithelial Cells 5 /hpf Urine Mucus FEW /lpf Microscopic Urinalysis Comment CULT NOT INDICATED MDM Medical Decision Making Medical Screen Exam Complete: Yes Emergency Medical Condition: Yes Medical Record Reviewed: Yes Interpretation(s) CBC & BMP Diagram 09/08/17 12:50 Total Protein 7.3, Albumin 3.5, Calcium Level 8.6, Magnesium Level 2.1, Alkaline Phosphatase 103, Aspartate Amino Transf (AST/SGOT) 14 L, Alanine Aminotransferase (ALT/SGPT) 18, Total Bilirubin 0.[address] 09/08/17 1245 Signed Impressions: Service Date/Time: Friday, September 08, 2017 13:29 - CONCLUSION: 1. Stable left frontoparietal focal encephalomalacia. 2. No acute hemorrhage, acute infarct, mass effect or extra-axial fluid collections. Shashi Reilly MD Troponin and CK-MB negative. EKG shows sinus rhythm with no sign of acute ischemia or arrhythmia rhythm and attending. Differential Diagnosis Syncope versus seizure versus cardiac syncope versus dehydration versus normal exam Narrative Course 52-year-old female that presents to the ED for evaluation of possible syncope versus seizures. Patient was properly examined and was found to have signs and symptoms more consistent with syncope than seizure. I did review her medical records and she has had multiple workups that all have for the most part been negative. She apparently has already appointments with specialist for further evaluation of these episodes. She does however tell me that she did have some dizziness and chest discomfort before the symptoms started and she states that she has had them before like this. She does not know her communications equipment installer name or her neurologist name. At this time labs and imaging order. Labs and imaging showed no sign of acute disease. Unclear etiology of the symptoms. Patient already has 2 specialist appointments for next week. I spoke with her and her about possibility of admission for further eval. Patient prefers to go home and get evaluated by her specialist. She has not seen the specialist yet. She understands that without proper testing we cannot completely tell her that she is okay. She rather follow-up with them as she has been here multiple times with similar with no results. I think at this time is reasonable. Patient appears to be well. She was told that she cannot drive or operate heavy machinery. She was told that she needs to continue taking her medications as prescribed by her doctors. see ED worsening symptoms. Follow- up with PCP. Case discussed with Dr Kemp who agrees with plan. Diagnosis Primary Impression: Syncopal episodes Qualified Codes: R55 - Syncope and collapse Patient Instructions: General Instructions Departure Forms: Tests/Procedures, Work Release Enter return to work date: Sep 09, 2017 Additional Instructions: Follow-up with your doctors. See ED if worsening symptoms. Do not drive or operate heavy machinery. Med/Other Pt SpecificInfo: No Change to Meds Disposition: 01 DISCHARGE HOME Condition: Stable Jose Hutchison Sep 08, 2017 13:33
--- NOTE | 2017-09-08 13:38 | RADRPT ---
EXAM DATE/TIME: 09/08/2017 13:29 [facility] COMPARISON: CT BRAIN W/O CONTRAST, July 01, 2017, 11:20. INDICATIONS : Trauma, seizure. RADIATION DOSE: 41.87 CTDIvol (mGy) MEDICAL HISTORY : Cerebrovascular disease. Hypertension. Seizures. SURGICAL HISTORY : None. ENCOUNTER: Initial ACUITY: 1 day PAIN SCALE: 0/10 LOCATION: Bilateral cranial TECHNIQUE: Multiple contiguous axial images were obtained of the head. Using automated exposure control and adj ustment of the mA and/or kV according to patient size, radiation dose was kept as low as reasonably a chievable to obtain optimal diagnostic quality images. DICOM format image data is available electro nically for review and comparison. FINDINGS: CEREBRUM: The ventricles are normal for age. Stable focal encephalomalacia is noted involving the left frontop arietal region. No evidence of midline shift, mass lesion, hemorrhage or acute infarction. No extra- axial fluid collections are seen. POSTERIOR FOSSA: The cerebellum and brainstem are intact. The 4th ventricle is midline. The cerebellopontine angle i s unremarkable. EXTRACRANIAL: The visualized portion of the orbits is intact. SKULL: The calvaria is intact. No evidence of skull fracture. CONCLUSION: 1. Stable left frontoparietal focal encephalomalacia. 2. No acute hemorrhage, acute infarct, mass effect or extra-axial fluid collections. Shashi Reilly MD on September 08, 2017 at 13:34 Board Certified Radiologist. This report was verified electronically.
[2017-09-08 14:36] LABS: TROPONIN I LESS THAN 0.02 NG/ML (0.02-0.05)
[2017-09-08 14:45] LABS: BILIRUBIN, URINE NEG (NEG); BLOOD, URINE TRACE (NEG); GLUCOSE,URINE NEG (NEG); KETONE, URINE NEG (NEG); MUCUS URINE FEW /lpf (OCC); NITRITE,URINE NEG (NEG); PH, URINE 5.5 (5.0-8.5); SQUAMOUS EPITHELIAL CELL URINE 5 /hpf (0-5); URINE COLOR YELLOW (YELLW/STRAW); URINE LEUKOCYTE ESTERASE SMALL (NEG)
[2017-09-08 15:04] VITALS: BP 130/61; PULSE 77; RESP 20; O2SAT 96
--- NOTE | 2017-09-08 15:46 | PD ---
Physical Exam Date Seen by Provider: Sep 08, 2017 Time Seen by Provider: 13:30 Narrative I, Dr. Gage, have reviewed the advance practice practitioner's documentation and am in agreement, met with the patient face to face, made the diagnosis, and the medical decision making was done by me. *My assessment and Findings: Patient seen and evaluated with PA, please see PA notes for further details. She is coming in with 2 episodes today of what she thought was a seizure. Patient describes having some chest discomfort, lightheadedness before the episodes. She had no significant injuries, no tongue biting, or incontinence. EKG shows NSR, no ST elevation or depression, and no arrhythmias. No significant T-wave inversions. Laboratory Tests Test 09/08/17 12:50 09/08/17 13:25 09/08/17 14:20 Activated Partial Thromboplast Time 35.4 SEC (24.3-30.1) Aspartate Amino Transf (AST/SGOT) 14 U/L (15-37) Chloride Level 110 MEQ/L (98-107) Estimat Glomerular Filtration Rate 70 ML/MIN (>89) Troponin I LESS THAN 0.02 NG/ML Urine Turbidity HAZY (CLEAR) Urine Occult Blood TRACE (NEG) Urine Leukocyte Esterase SMALL (NEG) Urine RBC 4 /hpf (0-3) Urine Mucus FEW /lpf (OCC) Last [address] 09/08/17 1245 Signed Impressions: Service Date/Time: Friday, September 08, 2017 13:29 - CONCLUSION: 1. Stable left frontoparietal focal encephalomalacia. 2. No acute hemorrhage, acute infarct, mass effect or extra-axial fluid collections. Shashi Reilly MD CAT scan did not show any signs of acute processes. Chest x-ray and lab work was fairly unremarkable and EKG did not show any significant dysrhythmias. Patient apparently has been seen for similar symptoms in the past and has had evaluation, supposed to follow-up as an outpatient next week with cardiology and neurology. At this point, we have talked to the patient regarding observation admission considering that there is concern here that these are syncopal episodes but she is declining at this time stating that she has outpatient follow-up for this issue and has been evaluated several times for this. At this point, she will follow-up with cardiology and neurology as an outpatient. She should return for any worsening of symptoms. She should avoid driving or operating heavy machinery meanwhile. The plan of the wrist were discussed with the patient and she states understanding. Data Data Last Documented VS Vital Signs Date Time Temp Pulse Resp B/P (MAP) Pulse Ox O2 Delivery O2 Flow Rate FiO2 09/08/17 15:04 77 20 130/61 (84) 96 09/08/17 12:49 Room Air Orders Orders Electrocardiogram (09/08/17 12:45) Complete Blood Count With Diff (09/08/17 12:45) Comprehensive Metabolic Panel (09/08/17 12:45) Prothrombin Time / Inr (Pt) (09/08/17 12:45) Act Partial Throm Time (Ptt) (09/08/17 12:45) Urinalysis - C+S If Indicated (09/08/17 12:45) Magnesium (Mg) (09/08/17 12:45) Thyroid Stimulating Hormone (09/08/17 12:45) Ct Brain W/O Iv Contrast(Rout) (09/08/17 12:45) Iv Access Insert/Monitor (09/08/17 12:45) Ecg Monitoring (09/08/17 12:45) Oximetry (09/08/17 12:45) Orthostatic Vital Signs (09/08/17 12:45) Levetiracetam (09/08/17 13:07) Troponin I (09/08/17 13:31) Ckmb (Isoenzyme) Profile (09/08/17 13:31) Ed Discharge Order (09/08/17 15:33) Labs Laboratory Tests Test 09/08/17 12:50 09/08/17 13:25 09/08/17 14:20 White Blood Count 7.8 TH/MM3 Red Blood Count 4.59 MIL/MM3 Hemoglobin 13.2 GM/DL Hematocrit 40.1 % Mean Corpuscular Volume 87.4 FL Mean Corpuscular Hemoglobin 28.8 PG Mean Corpuscular Hemoglobin Concent 32.9 % Red Cell Distribution Width 14.8 % Platelet Count 251 TH/MM3 Mean Platelet Volume 8.0 FL Neutrophils (%) (Auto) 64.2 % Lymphocytes (%) (Auto) 24.6 % Monocytes (%) (Auto) 7.1 % Eosinophils (%) (Auto) 3.4 % Basophils (%) (Auto) 0.7 % Neutrophils # (Auto) 5.0 TH/MM3 Lymphocytes # (Auto) 1.9 TH/MM3 Monocytes # (Auto) 0.6 TH/MM3 Eosinophils # (Auto) 0.3 TH/MM3 Basophils # (Auto) 0.1 TH/MM3 CBC Comment DIFF FINAL Differential Comment Prothrombin Time 11.0 SEC Prothromb Time International Ratio 1.1 RATIO Activated Partial Thromboplast Time 35.4 SEC Blood Urea Nitrogen 13 MG/DL Creatinine 0.85 MG/DL Random Glucose 83 MG/DL Total Protein 7.3 GM/DL Albumin 3.5 GM/DL Calcium Level 8.6 MG/DL Magnesium Level 2.1 MG/DL Alkaline Phosphatase 103 U/L Aspartate Amino Transf (AST/SGOT) 14 U/L Alanine Aminotransferase (ALT/SGPT) 18 U/L Total Bilirubin 0.5 MG/DL Sodium Level 143 MEQ/L Potassium Level 4.2 MEQ/L Chloride Level 110 MEQ/L Carbon Dioxide Level 25.8 MEQ/L Anion Gap 7 MEQ/L Estimat Glomerular Filtration Rate 70 ML/MIN Total Creatine Kinase 86 U/L Troponin I LESS THAN 0.02 NG/ML Thyroid Stimulating Hormone 3rd Gen 1.690 uIU/ML Urine Color YELLOW Urine Turbidity HAZY Urine pH 5.5 Urine Specific [place] 1.022 Urine Protein NEG mg/dL Urine Glucose (UA) NEG mg/dL Urine Ketones NEG mg/dL Urine Occult Blood TRACE Urine Nitrite NEG Urine Bilirubin NEG Urine Urobilinogen LESS THAN 2.0 MG/DL Urine Leukocyte Esterase SMALL Urine RBC 4 /hpf Urine WBC 2 /hpf Urine Squamous Epithelial Cells 5 /hpf Urine Mucus FEW /lpf Microscopic Urinalysis Comment CULT NOT INDICATED MDM Medical Record Reviewed: Yes Supervised Visit with IMAN: Yes Diagnosis Primary Impression: Syncopal episodes Qualified Codes: R55 - Syncope and collapse Patient Instructions: General Instructions, Syncope (ED) Departure Forms: Work Release, Enter return to work date: Tests/Procedures Additional Instruction: Follow-up with your doctors. See ED if worsening symptoms. Do not drive or operate heavy machinery. Disposition: 01 DISCHARGE HOME Condition: Stable Trent Gage MD Sep 08, 2017 15:46
--- NOTE | 2017-09-09 16:34 | EKG ---
Date Performed: 09/08/2017 Time Performed: 13:08:18 PTAGE: 52 years EKG: Sinus rhythm INCOMPLETE RIGHT BUNDLE BRANCH BLOCK MINIMAL ST DEPRESSION BORDERLINE ECG PREVIOUS TRACING : 07/01/2017 10.31 Since the previous tracing, no significant change noted DOCTOR: Jered Richards Interpretating Date/Time 09/09/2017 16:29:18
== END 2017-09-08 15:49 | disposition home or self-care (01) ==
LOC: NEPE 12:36
DX: R55 Syncope and collapse (principal); R42 Dizziness and giddiness; R07.89 Other chest pain; R94.31 Abnormal electrocardiogram [ECG] [EKG]; I10 Essential (primary) hypertension; Z79.82 Long term (current) use of aspirin; Z86.73 Personal history of transient ischemic attack (TIA), and cerebral infarction without residual deficits; Z86.718 Personal history of other venous thrombosis and embolism
CPT/HCPCS: 70450; 80053; 80177; 81001; 82550; 83735; 84443; 84484; 85025; 85610; 85730; 93005